=== PATIENT | male | born 1930 | race Caucasian/White ===

== ENCOUNTER 2016-05-13 11:47 | Emergency (ER) | payer OTHER ==
--- NOTE | ~2016-05-13 | CT4 ---
[facility] A Service of [facility] & [facility] RADIOLOGY TEXT RESULTS PATIENT: ROB HOYOS LOCATION: [facility] : 30 UNIT #: [id number] AGE: [address]: Darrel Buchanan MD SEX: M ORDER DR: [id number] [facility] [address] [place], [place] [address] [id number] MR#: [id number] Acc #: [id number] NAME: ROB HOYOS. : 1930 SEX: M STUDY DATE/TIME: 05/13/2016 13:23 UNIT: [facility] ROOM: STUDY DESCRIPTION: CT Abd and Pelv Wo Cont Attending Physician: Darrel Buchanan M.D. Ordering Physician: Darrel Buchanan M.D. Primary Care Physician: Ebenezer Weiss M.D. MEDICAL IMAGING REPORT This report is preliminary unless electronic signature is present EXAM CT abdomen and pelvis without contrast, 05/13/2016 13:23 hours HISTORY 85-year-old man with complaint of diarrhea for 2 weeks. History of bladder cancer, CHF and previous stroke. COMPARISON CT abdomen and pelvis, 06/19/2012 TECHNIQUE Helical noncontrasted images were obtained from the lung bases through the pubic symphysis. Sagittal and coronal reconstructions were performed. Total exam DLP 1026 mGy-cm. This CT exam was performed with one or more of the following radiation dose reduction techniques: automatic exposure control, adjustment of mA and/or kV according to patient size, and iterative reconstruction. FINDINGS Images through the lung bases demonstrate clear lungs. There are no effusions. There is a pacer device with tip in the right ventricle, new from 06/19/2012. Images through the abdomen demonstrate stable liver cysts. There is no new liver lesion. The spleen, pancreas and bile ducts are normal. The gallbladder is distended similar to prior exam with no definite stones, sludge or wall thickening. The adrenal glands are normal. The right kidney demonstrates a large cyst laterally which is stable. There is no solid mass or distension. There is no residual ureterectasis. Previous dilatation of the left renal collecting system has resolved. The bladder appears normal. No definite STS. [facility] A Service of [facility] & [facility] RADIOLOGY TEXT RESULTS PATIENT: ROB HOYOS LOCATION: [facility] : 30 UNIT #: [id number] AGE: [address]: Darrel Buchanan MD SEX: M ORDER DR: bladder wall thickening is seen where it was seen previously. Enlarged prostate measuring 5.8 x 5.5 x 5.0 cm is again noted. The stomach is contracted and unopacified but appears normal. There is no small bowel distension or small bowel wall thickening. The distal small bowel, right colon, transverse colon and descending colon are opacified with contrast. There is no bowel distension or definite wall thickening. There are multiple diverticula in the sigmoid colon without definite wall thickening seen. There is no fluid or adenopathy. Calcifications are seen in the abdominal aorta without aneurysm. IMPRESSION 1. No residual dilatation of the renal collecting systems or ureters. There is no definite bladder wall thickening where the bladder wall was thickened in 2012. Enlarged prostate again noted. 2. There are numerous colonic diverticula of the distal descending colon and sigmoid colon without definite bowel wall thickening or distension. 3. The small bowel is normal. No evidence of appendicitis or cholecystitis. Dictated by... Joseline Kat M.D. THIS IS AN ELECTRONICALLY VERIFIED REPORT Joseline Kat M.D. at 05/14/2016 9:25 AM Massimo TD: 05/13/2016 16:02 JOB #: [id number] MEDICAL IMAGING REPORT COPY
[~2016-05-13 11:47] MED LIST: ALLOPURINOL300 MG PO; ASPIRIN; ASPIRIN81 MG PO; BENAZEPRIL-HCT1 EAC1 PO; BENAZEPRIL-HCTZ1 T18 PO; BENICAR HCT 40-1 TA1; CALCITRIOL0.25 MCG PO; CARVEDILOL3.125 MG PO; CARVEDILOL6.25 MG PO; CENTRUM SILVER PO; CIPRO PO; CLOPIDOGREL75 MG PO; COUMADIN5 MG PO; FLOMAX0.4 M1 PO; FLOMAX0.4 MG; FUROSEMIDE40 MG PO; GABAPENTIN300 MG PO; IBUPROFEN; KEFLEX500 M1 PO; LISINOPRIL5 MG PO; LOPID600 MG PO; METOPROLOL SUCC25 MG PO; METOPROLOL SUCC50 MG PO; NEURONTIN100 MG PO; NITROGLYGERIN0.4 MG SL; NORCO 5/325 TAB1 TAB PO; NORCO 7.5/325 T1 TAB PO; PLAVIX PO; PLAVIX300 MG PO; PYRIDIUM PO; REQUIP1 MG PO; ROPINIROLE HCL1 MG PO; SIMVASTATIN5 MG PO; TOPROL XL PO; ZYLOPRIM PO; [UNRECOGNIZED DRUG - CODE]
[2016-05-13 11:49] LABS: BASOPHIL% 0.6 % (0-2.5); EOSINOPHIL# 0.1 X10e3 (0-0.7); EOSINOPHIL% 2.5 % (0.0-7.0); HEMATOCRIT 39.1 % (38.0-50.0); HEMOGLOBIN 12.9 gm/dL (13.0-16.0); LYMPHOCYTE# 1.1 X10e3 (1.0-3.5); LYMPHOCYTE% 19.7 % (17.0-45.0); MEAN CELL VOLUME 97.5 FL (83-96); MEAN CORPUSCULAR HEMOGLOBIN 32.1 PG (28-34); MEAN PLATELET VOLUME 8.5 FL (6.5-11.5); MONOCYTE# 0.5 X10e3 (0-1.0); MONOCYTE% 8.9 % (3.0-12.0); NEUTROPHIL# 3.8 X10e3 (1.5-7.1); NEUTROPHIL% 68.3 % (40-75); PLATELET COUNT 158 X10e3 (140-420); RED BLOOD COUNT 4.01 X10e (3.90-5.60); RED CELL DISTRIBUTION WIDTH 16.3 % (11.0-15.5); WHITE BLOOD COUNT 5.6 X10e3 (4.0-10.5)
[2016-05-13 11:54] LABS: DIFF IND NO
[2016-05-13 12:15] LABS: ALBUMIN SERUM 3.6 g/dL (3.5-5.0); BILIRUBIN, DIRECT 0.1 mg/dL (0.0-0.2); BILIRUBIN,INDIRECT 0.6 mg/dL (0.0-0.9); BILIRUBIN,TOTAL 0.7 mg/dL (0.2-2.0); BUN/CREATININE RATIO 31.17; CALCIUM SERUM 8.8 mg/dL (8.4-10.2); CREATININE SERUM 1.7 mg/dL (0.6-1.4); GLOM FILT RATE Estimated 40.9 mL/min (>60); POTASSIUM 4.4 mmol/L (3.5-5.1); PROTEIN TOTAL SERUM 6.5 g/dL (6.0-8.3)
[2016-06-19] MEDS ORDERED: REQUIP1 MG (06:16)
[2016-06-19] MEDS ORDERED: FLOMAX0.4 M1 DOB (06:16)
[2016-06-19] MEDS ORDERED: ALLOPURINOL300 MG PO (06:16)
[2016-06-19] MEDS ORDERED: LOPID600 MG (06:18)
[2016-06-19] MEDS ORDERED: COUMADIN5 MG PO (06:18)
[2016-06-19] MEDS ORDERED: NEURONTIN100 MG PO (06:18)
[2016-06-19] MEDS ORDERED: COREG6.25 MG PO (06:19)
[2016-06-19] MEDS ORDERED: LASIX PO (06:19)
[2016-06-19] MEDS ORDERED: CLOPIDOGREL75 MG PO (06:19)
[2016-06-19] MEDS ORDERED: CALCITRIOL0.25 MC1 (06:20)
[2016-06-19] MEDS ORDERED: ZESTRIL2.5 M1 PO (06:20)
[2016-06-19] MEDS ORDERED: NITROGLYGERIN0.4 MG (06:21)
[2016-06-26] MEDS ORDERED: PROTONIX PO (12:32)
[2016-06-26] MEDS ORDERED: COLESTIPOL HCL1 GM PO (12:33)
[2016-06-26] MEDS ORDERED: LOMOTIL WHITE2.5 M1 PO (12:33)
[2016-08-23] MEDS ORDERED: COLESTID (11:28)
[2016-08-23] MEDS ORDERED: COREG3.125 MG PO (11:30)
== END 2016-05-13 14:47 | disposition home or self-care (01) ==
LOC: CED 11:47
PROVIDERS: Emergency Medicine
DX: R19.7 Diarrhea, unspecified (principal); E78.5 Hyperlipidemia, unspecified; I11.0 Hypertensive heart disease with heart failure; I50.9 Heart failure, unspecified; Z88.5 Allergy status to narcotic agent
CPT/HCPCS: 36415; 74176; 80048; 80076; 82150; 83690; 85025; 87045; 87177; 87209; 87427; 87493; 87899; 96360; 99284

== ENCOUNTER → 2016-06-14 | Outpatient (CLI) | payer OTHER ==
[~2016-06-14] MED LIST changes: +ACETAMINOPHEN PO; +CALCITRIOL0.25 MC1; +CALCITRIOL0.25 MC1 PO; +CLOPIDOGREL BIS75 MG PO; +COLESTID; +COLESTIPOL HCL1 GM PO; +COREG3.125 MG PO; +COREG6.25 M1 PO; +COREG6.25 MG PO; +COUMADIN3 MG PO; +FLOMAX0.4 M1 DOB; +LASIX PO; +LASIX20 MG PO; +LOMOTIL WHITE2.5 M1 PO; +LOPID600 MG; +NITROGLYGERIN0.4 MG; +PANTOPRAZOLE SO40 MG PO; +PROTONIX PO; +REQUIP1 MG; +VICODIN 5-3001 EACH PO; +WARFARIN SODIUM3 MG PO; +WOUND CARE; +ZESTRIL2.5 M1 PO
--- NOTE | ~2016-06-14 | US135 ---
[facility] A Service of [facility] & [facility] RADIOLOGY TEXT RESULTS PATIENT: ROB HOYOS LOCATION: [facility] : 30 UNIT #: [id number] AGE: [address]: Ervin Mcmahan MD SEX: M ORDER DR: [id number] [facility] [address] [place], [place] [address] [id number] O MR#: [id number] Acc #: [id number] NAME: ROB HOYOS. : 1930 SEX: M STUDY DATE/TIME: 06/14/2016 12:35 UNIT: [facility] ROOM: STUDY DESCRIPTION: US U/L Ext Art Study Comp Michelet Attending Physician: Ervin Mcmahan M.D. Referring Physician: bEenezer Weiss M.D. Ordering Physician: Ervin Mcmahan M.D. Primary Care Physician: Ebenezer Weiss M.D. MEDICAL IMAGING REPORT This report is preliminary unless electronic signature is present EXAM ABIs with segmental pressures HISTORY Left foot ulcer since 01/2015, claudication of both calves, and numbness and tingling both feet x2 years. FINDINGS The right brachial artery pressure is 154. The right upper thigh pressure is 202, lower thigh 180, calf could not be obtained due to noncompressibility of the vessel. The right dorsalis pedis pressure is 156, with an ankle-brachial index of 1.01. The right posterior tibial pressure is 152, with an ankle-brachial index of 0.99. The right digital pressure is 73, with a toe index of 0.74. The left brachial artery pressure is 150. The left upper thigh pressure is 195, lower thigh 183, calf 232. The left dorsalis pedis pressure is 148, with an ankle-brachial index of 0.96. The left posterior tibial pressure is 142, with an ankle-brachial index of 0.92. The left digital pressure is 53, with a toe index of 0.34. Waveforms of the posterior tibial and dorsalis pedis waveforms are monophasic. Pulse volume recordings demonstrate a sharp upstroke in systolic peak of the upper thigh above knee segments. The left calf appears blunted. The right ankle and left ankle are both severely blunted, and have broadened systolic peaks. The left digital waveform is flat in comparison to the right. IMPRESSION [facility]. [facility] A Service of [facility] RADIOLOGY TEXT RESULTS PATIENT: ROB HOYOS LOCATION: [facility] : 30 UNIT #: [id number] AGE: [address]: Ervin Mcmahan MD SEX: M ORDER DR: 1. The right COLT is 1.01. This value, while normal, may be falsely elevated due to vessel calcification, as suggested by noncompressibility of some of the vessels. In addition, the waveforms are monophasic suggesting some level of peripheral vascular disease. 2. The left COLT is 0.96, which is within normal values. Again, however, this value may be falsely elevated due to vessel calcification, as pulse volume recordings and waveforms suggest some femoropopliteal disease. Dictated by... Skyler Bills M.D. THIS IS AN ELECTRONICALLY VERIFIED REPORT Skyler Bills M.D. at 06/17/2016 2:00 PM Luanne TD: 06/16/2016 12:02 JOB #: [id number] MEDICAL IMAGING REPORT Page 1 of 1 COPY
== END | disposition home or self-care (01) ==
LOC: CNIV 12:13
DX: I70.299 Other atherosclerosis of native arteries of extremities, unspecified extremity (principal); I73.9 Peripheral vascular disease, unspecified
CPT/HCPCS: 93923

== ENCOUNTER → 2016-06-19 | Day surgery (SDC) | payer OTHER ==
--- NOTE | ~2016-06-19 | OR ---
Unit #: [id number] #: [id number] Patient: ROB HOYOS [id number] [address] [id number] O MR#: [id number] NAME: ROB HOYOS ROOM: Date of Procedure: 06/19/2016 Admission Date: 06/19/2016 Surgeon: Erwin Galaviz M.D. : 1930 Attending Physician: Erwin Galaviz M.D. Primary Care Physician: Ebenezer Weiss M.D. OPERATIVE REPORT PREOPERATIVE DIAGNOSES The patient has presented with history of chronic watery nonbloody diarrhea along with significant weight loss. He also has nocturnal symptoms. PROCEDURES PERFORMED Upper gastrointestinal endoscopy and biopsy as well as colonoscopy with biopsy and colonoscopy with polypectomy. POSTOPERATIVE DIAGNOSES For upper endoscopy: 1. 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 Appropriate biopsies obtained. In addition, there was mild focal patchy erosive duodenitis in the duodenal bulb. 2. Rest of the examination up to third part of duodenum was normal. Biopsies obtained from the deep descending duodenal folds to look for any evidence of partial villous atrophy or celiac disease. For colonoscopy: 1. The patient had large pedunculated polyp in the proximal sigmoid colon. This was about 3.5 cm in size. It was removed using snare cautery polypectomy. 2. Severe localized sigmoid and descending colon diverticulosis. 3. Rest of the examination up to cecum and terminal ileum was normal. The quality of the prep was excellent. Multiple random colonic biopsies obtained from throughout the colon to rule out microscopic or collagenous colitis. SEDATION USED MAC. RECOMMENDATIONS 1. The patient is advised to use daily pantoprazole 40 mg p.o. daily. In addition, he will use Colestid 1 g p.o. t.i.d. as well as p.r.n. Lomotil. 2. He will follow up in the office along with results of biopsies and polyp histology. The purpose of the biopsies to look for any evidence of microscopic or collagenous colitis. 3. The patient needs a repeat colonoscopy in 5 years. SEDATION USED MAC. Unit #: [id number] #: [id number] Patient: ROB HOYOS DESCRIPTION OF PROCEDURE Following detailed explanation of potential risks and complications of a colonoscopy, and an upper endoscopy, namely perforation, bleeding, and complications related to sedation, the patient was brought to GI lab and laid in the left lateral decubitus position. Lubricated tip of the Olympus video upper endoscope was passed through the bite block into the proximal esophagus under direct vision. The entire esophageal mucosa was examined. The patient was noted to have severe confluent distal ulcerative esophagitis along with evidence of Weaver esophagus. The scope was then advanced into the gastric cavity and the latter was insufflated. Mucosa of the fundus, body, and antrum examined and appeared unremarkable. Pylorus was intubated with visualization of the duodenal bulb. This showed evidence of mild focal patchy erosive duodenitis. Second and third part of the duodenum were normal. Upon withdrawal and retroflexion, second and third part of the duodenum were normal. Biopsies obtained from the deep descending duodenal folds to look for any evidence of partial villous atrophy or celiac disease. Upon withdrawal and retroflexion, incisura, cardia, and greater curve examined and biopsy obtained from the antrum for CLOtest. The scope was then withdrawn in the distal esophagus. The entire esophageal mucosa was examined all the way up to pharynx. No additional findings noted. The examination table was then turned by 180 degrees and the patient positioned for a colonoscopy. A digital rectal examination was performed, which was normal. Lubricated tip of the Olympus video colonoscope was inserted through the anus and advanced under direct vision. The scope was advanced and passed up to sigmoid into descending colon. The patient was noted to have severe localized sigmoid and descending colon diverticulosis. In addition, a large pedunculated polyp was also seen in the proximal sigmoid colon. This was about 3.5 to 4 cm in size. The scope tip was then navigated all the way up to cecum with visualization of the ileocecal valve and the appendiceal orifice. Preparation was excellent with good visualization and photodocumentation was obtained. Last several inches of the terminal ileum also visualized after intubation of the ileocecal valve and appeared normal. Successive segments of the colonic mucosa were examined upon withdrawal and appeared unremarkable except for presence of a large pedunculated polyp seen earlier and localized severe sigmoid diverticulosis. No evidence of colitis was seen. Attention was focused on the large polyp. It was removed in toto using snare cautery polypectomy. In addition, multiple random colonic biopsies also obtained from throughout the colon to rule out microscopic or collagenous colitis. The patient also had a small hemorrhoids at anal verge. The scope was then withdrawn. The patient returned to the recovery area. He tolerated the procedure without any postprocedure complications. Dictated byMagi Goldman/samir TD: 06/19/2016 08:42 JOB #: [id number] Unit #: [id number] #: [id number] Patient: ROB HOYOS OPERATIVE REPORT Page 1 of 1 X Erwin Galaviz MD X PROCEDURE OPERATIVE NOTE
== END | disposition home or self-care (01) ==
LOC: COPS 05:57
DX: D12.5 Benign neoplasm of sigmoid colon (principal); K21.0 Gastro-esophageal reflux disease with esophagitis; K29.80 Duodenitis without bleeding; K57.30 Diverticulosis of large intestine without perforation or abscess without bleeding; K64.9 Unspecified hemorrhoids; I25.2 Old myocardial infarction; E78.5 Hyperlipidemia, unspecified; I11.0 Hypertensive heart disease with heart failure; I50.9 Heart failure, unspecified; I48.91 Unspecified atrial fibrillation; Z86.73 Personal history of transient ischemic attack (TIA), and cerebral infarction without residual deficits; Z88.5 Allergy status to narcotic agent; Z79.01 Long term (current) use of anticoagulants; Z79.899 Other long term (current) drug therapy; Z95.5 Presence of coronary angioplasty implant and graft; Z98.1 Arthrodesis status; Z98.890 Other specified postprocedural states
CPT/HCPCS: 88305

== ENCOUNTER → 2016-06-21 | Outpatient (CLI) | payer OTHER ==
[2016-06-21 13:07] LABS: BASOPHIL% 0.8 % (0-2.5); EOSINOPHIL# 0.2 X10e3 (0-0.7); EOSINOPHIL% 4.1 % (0.0-7.0); HEMATOCRIT 38.7 % (38.0-50.0); HEMOGLOBIN 12.5 gm/dL (13.0-16.0); LYMPHOCYTE# 1.2 X10e3 (1.0-3.5); LYMPHOCYTE% 25.8 % (17.0-45.0); MEAN CELL VOLUME 100.7 FL (83-96); MEAN CORPUSCULAR HEMOGLOBIN 32.6 PG (28-34); MEAN CORPUSCULAR HGB CONC 32.4 g/dL (30-36); MEAN PLATELET VOLUME 7.9 FL (6.5-11.5); MONOCYTE# 0.5 X10e3 (0-1.0); NEUTROPHIL# 2.8 X10e3 (1.5-7.1); NEUTROPHIL% 59.3 % (40-75); PLATELET COUNT 138 X10e3 (140-420); RED BLOOD COUNT 3.84 X10e (3.90-5.60); RED CELL DISTRIBUTION WIDTH 16.1 % (11.0-15.5); WHITE BLOOD COUNT 4.7 X10e3 (4.0-10.5)
[2016-06-21 13:12] LABS: DIFF IND NO
[2016-06-21 13:33] LABS: ALBUMIN SERUM 3.4 g/dL (3.5-5.0); BILIRUBIN,TOTAL 0.6 mg/dL (0.2-2.0); BUN/CREATININE RATIO 26.81; CALCIUM SERUM 8.7 mg/dL (8.4-10.2); CREATININE SERUM 2.2 mg/dL (0.6-1.4); GLOM FILT RATE Estimated 26.3 mL/min (>60); POTASSIUM 3.9 mmol/L (3.5-5.1); PROTEIN TOTAL SERUM 6.6 g/dL (6.0-8.3)
[2016-06-25 22:20] LABS: GLIADIN IGA AB 6 Units (<20); GLIADIN IGG AB 4 Units (<20); RETICULIN IGA SCREEN W/REFLEX Negative (Negative); TISSUE TRANSGLUTAMINASE IGA AB 1 U/mL (<4)
== END | disposition home or self-care (01) ==
LOC: CLAB 12:23
PROVIDERS: Internal Medicine Gastroenterology
DX: K52.9 Noninfective gastroenteritis and colitis, unspecified (principal); E86.0 Dehydration; R63.4 Abnormal weight loss
CPT/HCPCS: 36415; 80053; 83516; 85025; 86255

== ENCOUNTER → 2016-06-26 | Outpatient (CLI) | payer OTHER ==
--- NOTE | ~2016-06-26 | OR ---
Unit #: [id number] #: [id number] Patient: ROB HOYOS [id number] [address] [place], [place] [address] [id number] O MR#: [id number] NAME: ROB HOYOS ROOM: Date of Procedure: 06/26/2016 Admission Date: 06/26/2016 Surgeon: Yovana Broderick M.D. : 1930 Attending Physician: Yovana Broderick M.D. Referring Physician: Yovana Broderick M.D. Primary Care Physician: Ebenezer Weiss M.D. OPERATIVE REPORT PREOPERATIVE DIAGNOSIS Peripheral arterial disease, nonhealing wound, left foot. POSTOPERATIVE DIAGNOSIS Peripheral arterial disease, nonhealing wound, left foot. PROCEDURES PERFORMED 1. Ultrasound-guided cannulation, right common femoral artery. 2. CO2 arteriogram, abdominal aorta. 3. Selective CO2 arteriogram, pelvis. 4. Selective left lower extremity arteriogram with CO2 as well as contrast. 5. Selective CO2 arteriogram, right lower extremity. 6. Placement of right common femoral artery Mynx percutaneous closure device. ANESTHESIA Local with sedation. Total time 55 minutes. COMPLICATIONS None. ESTIMATED BLOOD LOSS 10 mL. CONTRAST USED Isovue-27 mL. INDICATIONS FOR PROCEDURE The patient is an 85-year-old gentleman with a history of a nonhealing wound for 7 months in the bottom of his left foot. He was recommended an arteriogram after noninvasive arterial studies suggested significant arterial disease with calcified vessels causing falsely elevated COLT. In the office, he was identified to not have palpable pedal pulses in either foot. Once described the planned procedure of arteriogram including the risks, benefits, complications, and alternatives, he did wish to proceed. DESCRIPTION OF PROCEDURE The patient was taken to the operating room and placed on the operating room table in supine position. Following initiation of continuous pulse, pulse oximetry, and blood pressure monitoring by nursing staff, the patient was given Versed and fentanyl for sedation for a total time of 55 Unit #: [id number] #: [id number] Patient: ROB HOYOS minutes. The right and left groin were then prepped and draped in the normal standard manner. Using fluoroscopy, the femoral heads were identified and marked on the skin with a marker. Using ultrasound, the right common femoral artery was identified and under ultrasound guidance, the artery was anesthetized as well as subcutaneous tissues and then under ultrasound guidance, the artery was cannulated and a starter wire was then passed into the infrarenal aorta confirmed on fluoroscopy. A 4-Luxembourger sheath was advanced over the wire and a sheath arteriogram was performed with 2 mL of half-strength contrast confirming common femoral artery placement. An Omni Flush catheter was then advanced to the L1 vertebral body. The CO2 hand injection system was then prepared and connected to the Omni Flush catheter, and using 30 mL syringes for hand injection of CO2, an abdominal arteriogram was performed. The catheter was withdrawn to the aortic bifurcation and a selective pelvic arteriogram was performed in FAITH and COX 30-degree projection each with hand injection of 30 mL of CO2. Via the Omni Flush catheter, a Glidewire was selectively placed into the distal left external iliac artery and the catheter was then extended at that point. Using CO2 and hand injection of 30 mL aliquots spot, arteriograms were performed of the left lower extremity from the femoral head to the mid calf. There was opacification of the arterial system from the mid calf to the foot with CO2 and so using half strength contrast via the power injector. A bolus lena technique arteriogram was performed from the knee to the foot with 30 mL contrast at 5 mL/second with again half strength contrast. A second spot injection with contrast was performed of just the foot with 20 mL volume at 4 mL/second. The catheter was then withdrawn to the right external iliac artery and in spot fashion, right lower extremity arteriogram was performed from the femoral head to the toes with hand injection of 30 mL CO2 aliquots. Upon completion, the Omni Flush catheter was removed over a wire and the 4-Luxembourger sheath was exchanged for a 5-Luxembourger sheath. A 5-Luxembourger Mynx closure device was then advanced via the sheath and deployed without incident with hemostasis being excellent. Pressure was held on the site for 5 minutes with no bleeding noted and dressing was then applied. The procedure was then terminated. The patient tolerated the procedure well and was taken to the recovery room in stable condition. All needle, sponge, and instrument counts were correct at the end of the case. FINDINGS The abdominal aorta is widely patent without atherosclerosis or stenosis. There were single renal vessels bilaterally. The right and left common iliac artery, internal iliac artery, and external iliac arteries were widely patent without disease. The left common femoral artery, profunda femoral artery, and superficial femoral arteries were widely patent without disease. The popliteal artery from both above and below the knee was widely patent. The anterior tibial artery and posterior tibial arteries were occluded in the left lower extremity. The peroneal artery was patent, but then became occluded and did not reconstitute from the mid calf to the foot. There was faint reconstitution of a small and very diseased anterior tibial artery at the dorsum of the foot. There was minimal small vessel flow into the foot. The left common femoral artery, profunda femoral artery, superficial femoral artery, and popliteal arteries were widely patent without significant disease. The anterior tibial artery and posterior tibial arteries were occluded and did not reconstitute. There was a patent peroneal artery to the ankle, which provided a small amount of flow to the posterior tibial artery and anterior tibial artery and dorsalis pedis Unit #: [id number] #: [id number] Patient: ROB HOYOS artery into the foot. Dictated by... Magi Washburn/samir TD: 06/26/2016 22:51 JOB #: [id number] OPERATIVE REPORT Page 1 of 1 X Yovana Broderick MD X PROCEDURE OPERATIVE NOTE
[2016-06-26 12:42] LABS: PROTHROMBIN TIME (PATIENT) 21.2 SECONDS (9.6-11.5)
[2016-06-26 12:47] LABS: BUN/CREATININE RATIO 25.55; CREATININE SERUM 1.8 mg/dL (0.6-1.4); GLOM FILT RATE Estimated 33.6 mL/min (>60); POTASSIUM 4.7 mmol/L (3.5-5.1)
== END | disposition home or self-care (01) ==
LOC: CIVR 11:31
PROVIDERS: Surgery Vascular Surgery
DX: I70.244 Atherosclerosis of native arteries of left leg with ulceration of heel and midfoot (principal); E78.5 Hyperlipidemia, unspecified; I48.91 Unspecified atrial fibrillation; Z79.01 Long term (current) use of anticoagulants; I87.393 Chronic venous hypertension (idiopathic) with other complications of bilateral lower extremity; I12.9 Hypertensive chronic kidney disease with stage 1 through stage 4 chronic kidney disease, or unspecified chronic kidney disease; N18.3 Chronic kidney disease, stage 3 (moderate); E11.9 Type 2 diabetes mellitus without complications; Z88.5 Allergy status to narcotic agent
CPT/HCPCS: 36415; 75625; 75716; 80048; 85610; 85730; C1725; J1644; J2250; J3010; Q9967

== ENCOUNTER 2016-07-17 20:48 | Observation (INO) | payer OTHER ==
--- NOTE | ~2016-07-17 | DS ---
Unit #: [id number] #: [id number] Patient: ROB HOYOS [id number] [address] [address] [id number] MR#: [id number] NAME: ROB HOYOS. ROOM: 565 Age: 85 Sex: M Admission Date: 07/17/2016 : 1930 Discharge Date: 07/19/2016 Attending Physician: Ahmet Zheng M.D. Primary Care Physician: Ebenezer Weiss M.D. DISCHARGE SUMMARY REASON FOR ADMISSION Coumadin toxicity, spontaneous bleeding, left arm. HISTORY OF PRESENT ILLNESS/HOSPITAL COURSE Patient is a very pleasant 85-year-old male with a prior history of coronary artery disease, atrial fibrillation, peripheral vascular disease was admitted secondary to Coumadin toxicity. He was noted to have an INR of 11. On day of admission, he was given 5 mg of vitamin K p.o. x1. He was also given 1 unit FFP. Through hospital course, his INR gradually drifted down to 3.5 and subsequently this morning, and is currently standing at 1.8. The remainder of his medical conditions remain stable. We consulted Wound Care, as he is being followed as an outpatient by [facility]. Appropriate wound culture of the left foot was taken. The patient will be followed as an outpatient by both [facility] as well as Wound Care. Dr. Brar was notified of the patient's admission, not formally consulted. No changes were done in his overall regimen. At the time of discharge, his Coumadin will be resumed but at a lower dosage. Please see below for details. He was instructed to follow-up on Friday for a repeat PT/INR at his primary care physician's office. FINAL DISCHARGE DIAGNOSES 1. Coumadin toxicity/supratherapeutic INR. 2. Spontaneous bleeding left arm, now resolved. 3. BPH. 4. Hyperlipidemia. 5. Gout. 6. Chronic kidney disease. 7. Atrial fibrillation. 8. Coronary artery disease. 9. Peripheral vascular disease. 10. Chronic wound left foot. 11. Esophagitis. 12. Polypectomy history with recent colonoscopy June 2016. 13. Prior history of bladder cancer, status post cystoscopy. 14. Moderate aortic stenosis. 15. Hypertension. 16. Permanent pacemaker placement. FINAL DISCHARGE MEDICATIONS Unit #: [id number] #: [id number] Patient: ROB HOYOS 1. Coreg 6.25 mg p.o. b.i.d. 2. Lasix 40 mg p.o. q.day. 3. Lisinopril 2.5 mg p.o. q.day. 4. Allopurinol 300 mg p.o. q.day. 5. Plavix 75 mg p.o. q.day. 6. Protonix 40 mg p.o. q.day. 7. Sublingual nitro as directed. 8. Calcitriol 0.25 mcg p.o. q.day. 9. Requip 1 mg p.o. q.day. 10. Lopid 600 mg p.o. b.i.d. 11. Colestid 1 g p.o. t.i.d. 12. Lomotil 1 tablet p.o. q.8 p.r.n. 13. Neurontin 100 mg p.o. b.i.d. 14. Coumadin 3 mg p.o. q.day. 15. Tylenol 650 mg p.o. q.6 p.r.n. 16. Flomax 0.4 mg p.o. q.day. DISCHARGE CONDITION Stable. DISCHARGE DISPOSITION Home. Patient instructed to have a repeat PT/INR on Friday with results and/or management, to be managed by primary care physician. Dictated by... Magi Triplett/chayo TD: 07/20/2016 15:51 JOB #: [id number] DISCHARGE SUMMARY Page 1 of 1 X Ahmet Zheng MD X DISCHARGE SUMMARY
--- NOTE | ~2016-07-17 | CO ---
Unit #: [id number] #: [id number] Patient: ROB HOYOS [id number] [facility]. [address] [place], [place] [address] [id number] MR#: [id number] NAME: ROB HOYOS. ROOM: 565 Age: 85 Sex: M Admission Date: 07/18/2016 : 1930 Attending Physician: Ahmet Zheng M.D. Primary Care Physician: Ebenezer Weiss M.D. Consultation Date: 07/18/2016 CONSULTATION REPORT REASON FOR CONSULTATION Coumadin toxicity. HISTORY OF PRESENT ILLNESS This is an 85-year-old, male well known to Dr. Brar with a prior cardiac history of chronic systolic and diastolic heart failure, permanent AFib on Coumadin, moderate aortic stenosis, hypertension, hyperlipidemia, and tachybradycardia syndrome status post permanent pacemaker in February 2016. He also has a history of coronary artery disease. His last cardiac cath was in 2014. It showed a mid LAD 95% to 99%, first diagonal was 99%, and left circumflex 100% at the first OM. He had a drug-eluting stent placed to the first diagonal and the mid LAD, but there was unsuccessful angioplasty of the first OM lesion. He also has a history of peripheral artery disease with right foot nonhealing wound. He was working outside in his yard when he injured his left arm. His left arm laceration continued to bleed so he presented to the ER. In the ER, his INR was 11 and his PT was 125. He was due to have his PT and INR rechecked tomorrow. Reports that at his last INR check a month ago, his INR was therapeutic in the 2.5 ranch and no changes were made to his Coumadin dosing. He denies recent antibiotic use. Reports ongoing diarrhea over the last one or two months resulting in a GI workup last month. PAST MEDICAL HISTORY 1. Chronic systolic and diastolic congestive heart failure. 2. Permanent AFib on chronic Coumadin. 3. Moderate aortic stenosis. 4. Tachycardia-bradycardia syndrome, status post permanent pacemaker implantation in February 2016. 5. Hypertension. 6. Diabetes mellitus. 7. Hyperlipidemia. 8. Chronic kidney disease. 9. CVA/TIA. 10. Bladder cancer. 11. Peripheral arterial disease with nonhealing foot wounds. 12. Coronary artery disease, status post drug-eluting stent x2 to LAD in 2014. 13. Lifetime nonsmoker. 14. BPH. 15. Gout. SURGICAL HISTORY Unit #: [id number] #: [id number] Patient: ROB HOYOS A Cardiac cath, April 2014; permanent pacemaker, February 2016; EGD, June 2016; polypectomy and colonoscopy, June 2016; and cystoscopy and fulguration of the bladder. SOCIAL HISTORY Lifetime nonsmoker. Rarely drinks alcohol. FAMILY HISTORY His mother and father both had coronary artery disease and in their 80s. ALLERGIES Morphine. HOME MEDICATIONS 1. Calcitriol 0.25 mg p.o. daily. 2. Nitroglycerin 0.4 mg sublingual as needed for chest pain. 3. Protonix 40 mg p.o. daily. 4. Colestipol 1 mg 3 times a day. 5. Lopid 600 mg p.o. twice a day. 6. Coreg 6.25 mg twice a day. 7. Plavix 75 mg daily. 8. Lasix 40 mg daily. 9. Lisinopril 2.5 mg daily. 10. Flomax 0.4 mg p.o. daily. 11. Requip 1 mg p.o. daily. 12. Allopurinol 300 mg p.o. daily. 13. Coumadin 5 mg with alternating days, every other day of 2.5 mg p.o. 14. Neurontin 100 mg twice a day. REVIEW OF SYSTEMS Positive for bleeding, right foot wound, and lower extremity swelling. Otherwise negative, except for what was stated in the HPI. Denies chest pain, pressure, or tightness. Denies dyspnea on exertion, PND, or orthopnea. PHYSICAL EXAMINATION VITAL SIGNS: Temperature 97.9, heart rate 70, respiratory rate 16, blood pressure 130/67 to 143/113, height 68 inches, and weight 88.4 kg. GENERAL: Alert and oriented, 85-year-old, male. Sitting up on the side of the bed in no acute distress. HEENT: Head is atraumatic and normocephalic. Pupils are equal and round. Mucous membranes are moist. NECK: Supple. Trachea is midline. Negative for JVD. LUNGS: Clear and diminished in bases. Nonlabored respirations. HEART: S1 and S2. Regular rate and rhythm. No murmurs, rubs, or gallops auscultated. ABDOMEN: Soft, nontender, and nondistended. EXTREMITIES: Pulses are palpable. Trace of pedal edema. Left forearm with pressure dressing clean, dry, and intact. No cyanosis. NEUROLOGIC: Alert and oriented x3. Answers all questions appropriately and moves extremities equally. DIAGNOSTIC STUDIES LABORATORY: PT 125, INR 11, and PTT 77.4. Sodium 137, potassium 4, chloride 104, BUN 51, creatinine 2.1, and glucose 136. Hemoglobin 11.6, hematocrit 35.2, white blood cell count 5.6, and platelets 155. Unit #: [id number] #: [id number] Patient: ROB HOYOS CARDIOVASCULAR: Telemetry reveals ventricular paced with a rate of 70. EKG is pending. Echocardiogram done October 10, 2015, showed LV EF 65%, moderate aortic stenosis with AV area of 1.22 cm2 with max gradient of 24 mmHg and mean gradient of 11 mmHg, [id number] mitral regurgitation, mild tricuspid regurgitation, and trace pulmonic regurgitation. ASSESSMENT 1. Left arm laceration with bleeding. 2. Supratherapeutic INR. 3. Status post permanent pacemaker. 4. Permanent AFib. 5. Coronary artery disease, status post drug-eluting stent x2 to LAD in 2014. 6. Valvular heart disease with moderate aortic stenosis. 7. Hypertension/DM/hyperlipidemia. 8. PAD with nonhealing right foot wound. 9. Chronic kidney disease. PLAN 1. Reverse anticoagulation. He is currently receiving FFP. 2. We will recheck his PT and INR after infusion. 3. Follow hemoglobin and hematocrit. 4. Restart Coumadin at a lower dose once INR decreased. 5. Continue Plavix with no aspirin. 6. We will obtain an EKG. 7. Continue beta-william. We will add parameters to hold for systolic blood pressure less than 100. 8. Will continue Lasix and JESSICA inhibitor. Thank you for asking us to see this patient. We appreciate the consult. Dictated by... VERNA Gutierrez M.D. RB/mari TD: 07/19/2016 05:48 JOB #: [id number] CONSULTATION REPORT Page 1 of 1 X X CONSULTATION REPORT
--- NOTE | ~2016-07-17 | EKG ---
PATIENT: ROB HOYOS UNIT #: [id number] Ventricular Rate: 70 BPM Atrial Rate: 56 BPM QRS Duration: 196 ms Q-T Interval: 474 ms QTC Calculation(Bezet): 511 ms Calculated R Ledbetter: -60 degrees Calculated T Ledbetter: 108 degrees Diagnosis Line: Electronic ventricular pacemaker Diagnosis Line: When compared with ECG of 19-MAR-2016 05:10, Diagnosis Line: No significant change was found Diagnosis Line: Confirmed by CLIFTON RIVAS MD ([id number]) on Diagnosis Line: 07/19/2016 7:38:54 AM INTERPRETING MD: SUMAYA
--- NOTE | ~2016-07-17 | HP ---
Unit #: [id number] #: [id number] Patient: ROB HOYOS [id number] [address] [place], [place] [address] [id number] MR#: [id number] NAME: ORB HOYOS. ROOM: Age: 85 Sex: M Admission Date: 07/17/2016 : 1930 Attending Physician: Ignacio Alvarez D.O. Primary Care Physician: Ebenezer Weiss M.D. HISTORY AND PHYSICAL CHIEF COMPLAINT Coumadin toxicity, spontaneous bleeding left arm. HISTORY OF PRESENT ILLNESS This pleasant 85-year-old male with CAD, atrial fibrillation, peripheral vascular disease, is admitted for Coumadin toxicity. Two days ago while working in the yard, the patient bumped his left arm. It began to bleed despite applying pressure. The bleeding slowed down but then restarted yesterday and the patient presented to this emergency department late last evening. He required Surgicel to stop the bleeding and compression wraps. In the ER, labs are notable for INR of 11, PTT of 77.4. The patient was given 5 mg p.o. of vitamin K. The patient denies melena or hematochezia. PAST MEDICAL HISTORY 1. BPH. 2. Hyperlipidemia. 3. Gout. 4. Chronic kidney disease. 5. Peripheral vascular disease with a chronic wound left foot. 6. 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 7. Polypectomy and colonoscopy 06/2016. 8. Bladder cancer status post cystoscopy and fulguration. 9. CAD status post PCI and stent with normal LF function and moderate aortic stenosis. 10. Permanent atrial fibrillation on Coumadin. 11. Hypertension. 12. Possible TIA per old records. 13. Permanent pacemaker. SOCIAL HISTORY The patient lives alone. He stopped smoking 58 years ago. He drinks occasional alcohol. FAMILY HISTORY Coronary artery disease. ALLERGIES Morphine. HOME MEDICATIONS 1. Flomax 0.4 mg daily. 2. Requip 1 mg daily. 3. Allopurinol 300 mg daily. Unit #: [id number] #: [id number] Patient: ROB HOYOS 4. Coumadin 2.5 alternating with 5 mg every other day. 5. Neurontin 100 mg b.i.d. 6. Lopid 600 mg b.i.d. 7. Coreg 6.25 mg b.i.d. 8. Plavix 75 mg daily. 9. Lasix 40 mg daily. 10. Lisinopril 2.5 mg daily. 11. Calcitriol 0.25 mg daily. 12. Nitroglycerin p.r.n. chest pain. 13. Protonix 40 mg daily. 14. Colestid one gram t.i.d. 15. Lomotil. REVIEW OF SYSTEMS Bleeding left forearm, CAD, valvular heart disease, atrial fibrillation, TIA, hypertension, hyperlipidemia, BPH, gout, chronic kidney disease, peripheral vascular disease, esophagitis, bladder cancer, above-mentioned surgeries. All other systems were reviewed and otherwise negative. PHYSICAL EXAMINATION GENERAL APPEARANCE: A pleasant, 85-year-old male who currently is in no acute distress. VITAL SIGNS: Temperature 97.9. Pulse 70. Respirations 18. Blood pressure 131/62. O2 saturation 100% on room air. HEENT: Eyes: PERRLA. Extraoculars are intact. Pharynx is benign. NECK: Supple without adenopathy or thyromegaly. CHEST: Clear. CARDIAC: Normal S1, S2 with a 3/6 systolic murmur heard throughout the precordium but loudest at the retrosternal border. ABDOMEN: Bowel sounds are present. No hepatosplenomegaly, tenderness or masses. EXTREMITIES: A bandage over the left forefoot with a small amount of bleeding. There is a compression bandage over the left forearm, which I did not remove. NEUROLOGIC: The patient is awake, alert, oriented. Cranial nerves are intact except that he is hard of hearing. He has equal strength throughout. DIAGNOSTIC STUDIES LABORATORY: Hematocrit 35.2 down from 38.7, MCV 100.4, normal white count and platelet count. INR 11, PTT 77.4. SMA-7: Glucose 136, BUN 51, creatinine 2.1 up from a BUN of 46, creatinine 1.8 in June. ASSESSMENT 1. Coumadin toxicity. 2. Spontaneous bleeding left forearm better after Surgicel applied. 3. CAD status post PCI and stent. Ejection fraction 55% 05/2013. The patient has a history of atrial fibrillation, permanent pacemaker and moderate aortic stenosis. 4. BPH. 5. Gout. 6. Chronic kidney disease. 7. Peripheral vascular disease with chronic wound left foot. 8. History of bladder cancer. 9. Hypertension. 10. Esophagitis. Unit #: [id number] #: [id number] Patient: ROB HOYOS PLAN 1. Vitamin K was given in the ER. This was 5 mg p.o. times one. 2. Given the patient is high risk for further spontaneous bleeding, we will give one unit of FFP and recheck labs in a few hours. 3. Notify the patient's customer service representative teacher of admission. Dictated by Frances Lockwood M.D. AML/bd TD: 07/18/2016 06:02 JOB #: [id number] HISTORY AND PHYSICAL Page 1 of 1 X Frances Lockwood MD X HISTORY AND PHYSICAL
[~2016-07-17 20:48] MED LIST changes: -ACETAMINOPHEN PO; -CALCITRIOL0.25 MC1 PO; -CLOPIDOGREL BIS75 MG PO; -COLESTID; -COREG3.125 MG PO; -COREG6.25 M1 PO; -COUMADIN3 MG PO; -LASIX20 MG PO; -PANTOPRAZOLE SO40 MG PO; -VICODIN 5-3001 EACH PO; -WARFARIN SODIUM3 MG PO; -WOUND CARE
[2016-07-17 22:31] LABS: BASOPHIL% 0.6 % (0-2.5); EOSINOPHIL# 0.3 X10e3 (0-0.7); EOSINOPHIL% 4.6 % (0.0-7.0); HEMATOCRIT 35.2 % (38.0-50.0); HEMOGLOBIN 11.6 gm/dL (13.0-16.0); LYMPHOCYTE# 1.2 X10e3 (1.0-3.5); LYMPHOCYTE% 21.2 % (17.0-45.0); MEAN CELL VOLUME 100.4 FL (83-96); MEAN CORPUSCULAR HEMOGLOBIN 33.2 PG (28-34); MEAN CORPUSCULAR HGB CONC 33.1 g/dL (30-36); MONOCYTE# 0.6 X10e3 (0-1.0); MONOCYTE% 11.1 % (3.0-12.0); NEUTROPHIL# 3.5 X10e3 (1.5-7.1); NEUTROPHIL% 62.5 % (40-75); PLATELET COUNT 155 X10e3 (140-420); RED CELL DISTRIBUTION WIDTH 15.7 % (11.0-15.5); WHITE BLOOD COUNT 5.6 X10e3 (4.0-10.5)
[2016-07-17 22:33] LABS: DIFF IND NO
[2016-07-17 23:08] LABS: PROTHROMBIN TIME (PATIENT) 125.5 SECONDS (9.6-11.5)
[2016-07-17 23:09] LABS: PARTIAL THROMBOPLASTIN TIME 77.4 SECONDS (23.5-31.3)
[2016-07-18 00:38] LABS: BUN/CREATININE RATIO 24.28; CALCIUM SERUM 8.6 mg/dL (8.4-10.2); CREATININE SERUM 2.1 mg/dL (0.6-1.4); GLOM FILT RATE Estimated 27.9 mL/min (>60)
[2016-07-18 14:21] LABS: HEMATOCRIT 35.8 % (38.0-50.0); HEMOGLOBIN 11.8 gm/dL (13.0-16.0); MEAN CELL VOLUME 99.6 FL (83-96); MEAN CORPUSCULAR HEMOGLOBIN 32.7 PG (28-34); MEAN CORPUSCULAR HGB CONC 32.8 g/dL (30-36); MEAN PLATELET VOLUME 8.3 FL (6.5-11.5); RED BLOOD COUNT 3.6 X10e (3.90-5.60); RED CELL DISTRIBUTION WIDTH 15.9 % (11.0-15.5); WHITE BLOOD COUNT 4.4 X10e3 (4.0-10.5)
[2016-07-18 14:57] LABS: INR 3.5
[2016-07-18 15:04] LABS: PROTHROMBIN TIME (PATIENT) 38.2 SECONDS (9.6-11.5)
[2016-07-18 15:18] LABS: BUN/CREATININE RATIO 26.47; CALCIUM SERUM 8.7 mg/dL (8.4-10.2); CREATININE SERUM 1.7 mg/dL (0.6-1.4); POTASSIUM 3.8 mmol/L (3.5-5.1)
[2016-07-19 06:02] LABS: HEMATOCRIT 35.7 % (38.0-50.0); HEMOGLOBIN 11.8 gm/dL (13.0-16.0); MEAN CELL VOLUME 98.9 FL (83-96); MEAN CORPUSCULAR HEMOGLOBIN 32.7 PG (28-34); MEAN PLATELET VOLUME 8.8 FL (6.5-11.5); RED BLOOD COUNT 3.61 X10e (3.90-5.60); RED CELL DISTRIBUTION WIDTH 15.5 % (11.0-15.5); WHITE BLOOD COUNT 4.5 X10e3 (4.0-10.5)
[2016-07-19 06:18] LABS: INR 1.8; PROTHROMBIN TIME (PATIENT) 19.6 SECONDS (9.6-11.5)
[2016-07-19 07:25] LABS: BUN/CREATININE RATIO 26.25; CALCIUM SERUM 8.9 mg/dL (8.4-10.2); CREATININE SERUM 1.6 mg/dL (0.6-1.4); GLOM FILT RATE Estimated 38.7 mL/min (>60); POTASSIUM 3.7 mmol/L (3.5-5.1)
[2016-07-19] MEDS ORDERED: ACETAMINOPHEN PO (08:45)
[2016-07-19] MEDS ORDERED: COUMADIN3 MG PO (08:46)
[2016-08-23] MEDS ORDERED: COLESTID (11:28)
[2016-08-23] MEDS ORDERED: COREG3.125 MG PO (11:30)
== END 2016-07-19 13:24 | disposition home or self-care (01) ==
LOC: CED 20:48 → CEDOF 07-18 06:00 → C5C 07-18 06:00 → CED 07-18 06:07 → CEDOF 07-18 06:07 → C5C 07-18 08:37 → CEDOF 07-18 08:37 → C5C 07-18 08:37
PROVIDERS: Emergency Medicine; Family Medicine
DX: D68.32 Hemorrhagic disorder due to extrinsic circulating anticoagulants (principal); T45.515A Adverse effect of anticoagulants, initial encounter; S41.112A Laceration without foreign body of left upper arm, initial encounter; W22.8XXA Striking against or struck by other objects, initial encounter; Y92.096 Garden or yard of other non-institutional residence as the place of occurrence of the external cause; I25.10 Atherosclerotic heart disease of native coronary artery without angina pectoris; Z95.5 Presence of coronary angioplasty implant and graft; I48.2 Chronic atrial fibrillation; Z95.0 Presence of cardiac pacemaker; I35.0 Nonrheumatic aortic (valve) stenosis; I10 Essential (primary) hypertension; E11.9 Type 2 diabetes mellitus without complications; E78.5 Hyperlipidemia, unspecified; N40.0 Benign prostatic hyperplasia without lower urinary tract symptoms; I12.9 Hypertensive chronic kidney disease with stage 1 through stage 4 chronic kidney disease, or unspecified chronic kidney disease; N18.9 Chronic kidney disease, unspecified; Z85.51 Personal history of malignant neoplasm of bladder; I73.9 Peripheral vascular disease, unspecified; Z79.02 Long term (current) use of antithrombotics/antiplatelets; K20.9 Esophagitis, unspecified; Z86.010 Personal history of colon polyps; Z88.5 Allergy status to narcotic agent
CPT/HCPCS: 36415; 36430; 80048; 85025; 85027; 85610; 85730; 86850; 86900; 86901; 87070; 87077; 87186; 87205; 93005; 99285; G0378; J3430; P9059

== ENCOUNTER 2016-08-08 18:49 | Inpatient (IN) | payer OTHER ==
--- NOTE | ~2016-08-08 | CO ---
Unit #: [id number] #: [id number] Patient: ROB HOYOS [id number] [address] [place], [place] [address] [id number] I MR#: [id number] NAME: ROB HOYOS. ROOM: 547 Age: 85 Sex: M Admission Date: 08/08/2016 : 1930 Attending Physician: Ahmet Zheng M.D. Primary Care Physician: Ebenezer Weiss M.D. Consultation Date: 08/11/2016 CONSULTATION REPORT HISTORY AND EXAM Mr. Hoyos is an 85 -year-old gentleman who presented through the emergency room with weakness and dizziness after doing some yard work. He is admitted and stabilized and is now back to his baseline. He has a history of significant peripheral vascular disease and has had a chronic wound on the plantar surface of the left foot over the 1st metatarsophalangeal joint. He is followed at [facility] since last November and they have been doing wound care in the office and they have a wound nurse who sees him in home. According to the patient, the wound is continued to improve. PAST MEDICAL HISTORY 1. Coronary artery disease status post angioplasty and stenting. 2. History of atrial fibrillation. 3. Pacemaker placement. 4. Benign prostatic hypertrophy. 5. Hyperlipidemia. 6. Gout. 7. Chronic kidney disease. 8. Peripheral vascular disease. 9. Esophagitis. 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 11. Adenomatous polyps in colon. 12. Hypertension. 13. Previous TIA. 14. History of bladder cancer, treated by cystoscopy. 15. Spinal fusion. 16. He has had a history of some elbow surgery. ALLERGIES Allergic to morphine. MEDICATIONS Home medications include allopurinol, calcitriol, Coreg, Plavix, colestipol, Lomotil, Lasix, Neurontin, Lopid, Vicodin, Zestril, Protonix, ropinirole, Flomax, and Coumadin. FAMILY HISTORY Vascular disease. SOCIAL HISTORY Currently lives alone. Nonsmoker and nondrinker. REVIEW OF SYSTEMS Unit #: [id number] #: [id number] Patient: ROB HOYOS Otherwise unremarkable. PHYSICAL EXAMINATION GENERAL: He is awake, alert, and oriented, in no acute distress. A very pleasant gentleman. VITAL SIGNS: Temperature is 98.1, pulse 71, respirations 19, and blood pressure 109/70. HEENT: Unremarkable. CARDIAC: Irregular rhythm. LUNGS: Clear. ABDOMEN: Soft. EXTREMITIES: Examination of the left foot shows on the left foot he has about a 5 to 6 mm in diameter punctate wound. There is no purulent drainage. No cellulitis. He does not have any callus or necrotic tissue that needs debridement. NEUROLOGIC: Grossly intact. DIAGNOSTIC STUDIES LABORATORY RESULTS: Chemistry showed BUN and creatinine 31 and 2.0, but that is probably his baseline. Electrolytes unremarkable. INR is 2.6. White count is 5000, hemoglobin 9, and platelets 139,000. IMAGING STUDIES: No x-rays at this time. ASSESSMENT AND PLAN An 85-year-old gentleman with peripheral vascular disease. He has a chronic left plantar surface wound over the 1st metatarsophalangeal joint. He has been treated and followed as an outpatient at [facility] and has home wound nurse followup at home. Per the patient, it is markedly and greatly improved with treatment. The wound on examination is clean with no purulent drainage or necrotic tissue and no debridement is necessary at this time. I have suggested they continue his current management, then he follow up with learning center coordinator as an outpatient. From our standpoint, he can be discharged to home and continue his current wound management. Dictated by... Magi Loja/samir TD: 08/12/2016 12:34 JOB #: [id number] CONSULTATION REPORT Page 1 of 1 X Nazario Leija MD CONSULTATION REPORT
--- NOTE | ~2016-08-08 | CO ---
Unit #: [id number] #: [id number] Patient: ROB HOYOS [id number] [address] [place], [place] [address] [id number] I MR#: [id number] NAME: ROB HOYOS ROOM: 547 Age: 85 Sex: M Admission Date: 08/08/2016 : 1930 Attending Physician: Ahmet Zheng M.D. Primary Care Physician: Ebenezer Weiss M.D. CONSULTATION REPORT REASON FOR CONSULTATION Renal failure. HISTORY OF PRESENT ILLNESS The patient is an 85-year-old white male with significant past medical history of atrial fibrillation, congestive heart failure and chronic kidney disease - stage 3, but creatinine has been stable for the last few years anywhere between 1.6 to 1.9. The patient was also diagnosed with recent bladder cancer and had cystoscopy with fulguration done. Patient mainly came because of nausea and vomiting going on for the last few days but also getting more short of breath, weak. Yesterday, he was working in his garden and got extremely weak and tired and more short of breath. He also had some nausea and vomiting at that time. Transferred to the ER, found to have slightly increased troponin. Nausea and vomiting persisted, and he vomited again earlier this morning. He is feeling slightly better than yesterday. Overnight he was on IV fluids without any improvement in his symptoms. He has more swelling of the lower extremities, minimal orthopnea but definitely significant dyspnea on exertion, as per him. PAST MEDICAL HISTORY Significant for coronary artery disease with stent placement, history of permanent atrial fibrillation, history of pacemaker placement, history of biventricular congestive heart failure, history of gout, history of chronic kidney disease - stage 3, history of TIA in the past, history of spinal fusion and right elbow surgery. SOCIAL HISTORY Patient lives alone. He used to smoke but quit it about 50 years back. FAMILY HISTORY Significant for heart problems. HOME MEDICATIONS Reviewed. They include lisinopril, Neurontin, Lopid, Zestril, Protonix, ropinirole, Flomax. REVIEW OF SYSTEMS Review of systems is explained in history of present illness. PHYSICAL EXAMINATION GENERAL: On examination, the patient is an elderly male, not in any acute distress. VITAL SIGNS: Last blood pressure is 100/53, pulse is 70, temperature 98, respiratory rate is 28. Unit #: [id number] #: [id number] Patient: ROB HOYOS HEAD AND NECK: Pupils are reactive to light. Extraocular movements are intact. Mucous membranes are moist. Neck is supple. There is slight JVD on the right side. CHEST: Patient has bilateral air entry with some crackles at the bases. HEART: Regular rate and rhythm. A 2/6 systolic murmur. ABDOMEN: Abdomen is soft. Bowel sounds are positive. No guarding. No rigidity. EXTREMITIES: Extremities have 2 to 3+ edema on both lower extremities and with a dressing on the left lower foot because of the open wound. DIAGNOSTIC STUDIES LABS: Labs were reviewed. Creatinine is increased to 2.9, bicarb 19, potassium 4.1, sodium 133. Hemoglobin 31, hemoglobin 10. ASSESSMENT AND PLAN 1. Acute kidney injury. 2. Hyponatremia. 3. Mild metabolic acidosis. 4. Likely congestive heart failure clinically. 5. UTI possible but patient's WBCs and RBCs in the urine may be related to the patient's history of bladder cancer. 6. Anemia. DISCUSSION At this time, the patient seems to be clinically volume overloaded with increased edema, and I am going to stop IV fluids, start the patient on IV diuretics. That will be Lasix 40 mg IVP at this time. Follow up with repeat labs later today and tomorrow morning. Today's labs are also still pending. The patient will be seen by the wire stitcher machine because of the increased edema. May need a repeat echocardiogram. Repeat cardiac enzymes were also ordered at this time. The patient's bladder cancer, which seems to be stable at this time. Thank you for letting me evaluate and take care of this patient. Will followup patient tomorrow morning. Dictated by... Magi Vu TD: 08/09/2016 09:06 JOB #: [id number] CONSULTATION REPORT Page 1 of 1 X Chase Dubon MD CONSULTATION REPORT
--- NOTE | ~2016-08-08 | HP ---
Unit #: [id number] #: [id number] Patient: ROB HOYOS [id number] [address] [place], [place] [address] [id number] MR#: [id number] NAME: ROB HOYOS. ROOM: 62252 Age: 85 Sex: M Admission Date: 08/08/2016 : 1930 Attending Physician: Evert Fitzpatrick M.D. Primary Care Physician: Ebenezer Weiss M.D. HISTORY AND PHYSICAL CHIEF COMPLAINT Generalized weakness, one episode of diarrhea and nausea and vomiting. DISCUSSION This is an 85-year-old gentleman who has a past medical history of chronic kidney disease, history of peripheral vascular disease with chronic left foot wound, chronic permanent afib, history of BPH, hyperlipidemia, gout, hypertension, permanent pacemaker placement. He was brought to the emergency room with chief complaint of feeling generalized weakness, having nausea and diarrhea this morning one time, vomited three times, with dark urine and on the workup in the ER patient was found to be BUN 74, creatinine 2.9, glucose 194, and urine culture with a UTI, WBCs 10-25 and he has been admitted for acute kidney injury and UTI. He denied chest pain. He denies fever or chills, cough, shortness of breath, loss of consciousness, headache or any other complaint. PAST MEDICAL HISTORY 1. History of coronary artery disease status post PCI, stent with normal left ventricular function/moderate aortic stenosis. 2. History of permanent afib. 3. History of permanent pacemaker placement in the past. 4. Benign prostate hypertrophy. 5. Hyperlipidemia. 6. History of gout. 7. Chronic kidney disease. 8. Peripheral vascular disease with chronic wound left foot. 9. History of VOLLEYBALL REFEREE in June 2016 shows esophagitis/Weaver esophagus. 10. Colonoscopy in June 2016 with polypectomy. 11. History of hypertension. 12. History of possible TIA per old records. 13. History of bladder cancer status post cystoscopy and fulguration. 14. History of spinal fusion. 15. History of right elbow surgery. SOCIAL HISTORY He lives alone. He stopped smoking 50 years ago, does not drink alcohol, no other illicit drug use. FAMILY HISTORY Positive for coronary artery disease. ALLERGIES Morphine. Unit #: [id number] #: [id number] Patient: ROB HOYOS MEDICATION FROM HOME Is followin. Allopurinol 300 mg daily. 2. Calcitriol 0.25 mcg daily. 3. Coreg 6.25 b.i.d. 4. Plavix 75 mg daily. 5. Colestipol 1 g t.i.d. 6. Lomotil 2.5 mg t.i.d. 7. Lasix 40 mg daily. 8. Neurontin 100 mg b.i.d. 9. Lopid 600 mg b.i.d. 10. Vicodin 5/325 one tablet q.i.d. p.r.n. 11. Zestril 2.5 mg daily. 12. Protonix 40 mg daily. 13. Ropinirole 1 mg q.h.s. 14. Flomax 0.4 mg daily. 15. Warfarin 3 mg q.h.s. REVIEW OF SYSTEMS All review of systems negative except per history of present illness. PHYSICAL EXAMINATION GENERAL: On examination elderly may lying in the bed comfortably, currently not in any distress. On general examination he is alert, awake, oriented x3, not in any distress. VITAL SIGNS: Current vitals are following: Temperature 98.1, heart rate 70, respiratory rate 28, blood pressure was 100/53, oxygen is 95% on room air. HEENT: On HEENT examination pupils equally react to light and accommodation. Extraocular muscles intact. Pharynx benign. NECK: Supple. No jugular venous distention. No thyromegaly. LUNGS: Clear to auscultation. No rhonchi. No wheezing. HEART: S1, S2, regular rate and rhythm. A 2/6 systolic murmur. ABDOMEN: Abdomen is soft, nontender, nondistended. Bowel sounds positive. EXTREMITIES: Inspection normal. There is 1+ edema positive on both lower extremities and there is left foot with a bandage. There is a mild open wound on the palmar aspect of the left foot. NEUROLOGICAL: He is alert and oriented x3. Cranial nerves II-XII intact. Hard of hearing. Power 5/5 on both sides. DIAGNOSTIC STUDIES LABORATORY: Current laboratory workup is following: UA is cloudy appearance, leukocyte esterase 1+, WBC 10-25. Chemistry: Sodium 133, potassium 4.1, chloride 102, CO2 19, glucose 194, BUN 74, creatinine 2.9. LFTs within normal limits. Troponin less than 0.05. White count 7.5, hemoglobin 10, hematocrit 31, platelet is 142. INR is pending. ASSESSMENT AND PLAN 1. Urinary tract infection: Start the patient on IV Rocephin. 2. Acute kidney injury on chronic kidney disease: Hold Lasix and the lisinopril. Give IV fluid. Ask Nephrology, Dr. Dubon, to evaluate. 3. History of coronary artery disease with previous stent/hypertension/moderate aortic stenosis/chronic permanent atrial fibrillation on Coumadin: Monitor INR. 4. History of peripheral vascular disease with chronic left foot wound. 5. Benign prostate hypertrophy. 6. Hyperlipidemia. Unit #: [id number] #: [id number] Patient: ROB HOYOS 7. Gout. 8. History of esophagitis/Weaver esophagus. 9. History of bladder cancer with previous cystoscopy and fulguration. PLAN 1. Plan is to admit to the hospital. 2. Start on IV fluid and monitor closely. 3. IV Rocephin. 4. His BUN and creatinine were in May BUN was 42, creatinine was 1.6 and hold Lasix and monitor closely. 5. Ask Nephrology to evaluate. Dictated by Magi Moon/lucero TD: 08/08/2016 22:23 JOB #: [id number] HISTORY AND PHYSICAL Page 1 of 1 X X HISTORY AND PHYSICAL
--- NOTE | ~2016-08-08 | DS ---
Unit #: [id number] #: [id number] Patient: ROB HOYOS [id number] [address] [place], [place] [address] [id number] MR#: [id number] NAME: ROB HOYOS. ROOM: 547 Age: 85 Sex: M Admission Date: 08/08/2016 : 1930 Discharge Date: 08/11/2016 Attending Physician: Ahmet Zheng M.D. Primary Care Physician: Ebenezer Weiss M.D. DISCHARGE SUMMARY REASON FOR ADMISSION Acute kidney injury, nausea and vomiting. HISTORY OF PRESENT ILLNESS/HOSPITAL COURSE The patient is a very pleasant 85-year-old male with fairly complicated past medical history who presented with above. Consultation was placed to Dr. Dubon of [facility] after initial creatinine was done and was 2.9, his routine baseline is closer to 2.0. The patient received IV fluids. His diuretics were initially placed on hold. He responded appropriately. He was able to tolerate diet well. His creatinine today at time of discharge is 2.0. Consultation was also placed to Dr. Brar of cardiology services secondary to prior history of atrial fibrillation as well as heart failure. He continued to follow the patient. His medications were adjusted. His Coreg dosage was decreased secondary to persistent hypotension. Secondary to chronic lower extremity nonhealing ulcer, consultation was placed to Dr. Leija of [facility]. He saw and evaluated the patient and recommended an outpatient followup with Dr. Lopez of podiatric services for ongoing care. At this point in time, patient is clinically stable for discharge. He has tolerated diet well. At time of discharge, patient's creatinine is 2.0. At time of discharge, patient's hemoglobin is currently 9.0 which likely represents his baseline. FINAL DISCHARGE DIAGNOSES 1. Generalized weakness. 2. Acute kidney injury. 3. Intractable nausea and vomiting, now resolved. 4. Chronic kidney disease. Baseline creatinine 2.0. 5. Permanent atrial fibrillation. 6. Chronic anticoagulation with Coumadin. 7. Prior history of permanent pacemaker. 8. Benign prostatic hypertrophy. 9. Hyperlipidemia. 10. Gout. 11. Peripheral vascular disease followed by Dr. Broderick as an outpatient. 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 Galaviz. 13. Colonoscopy with prior history of polypectomy 2016. 14. Hypertension. 15. Bladder cancer. FINAL DISCHARGE MEDICATIONS Remain the same as home medications, with the exception of Coreg which has now been decreased to 3.125 mg p.o. b.i.d., and they include the followin. Flomax 0.4 mg p.o. h.s. 2. Coumadin 3 mg p.o. daily. 3. Neurontin 100 mg p.o. b.i.d. 4. Lomotil 2.5 mg p.o. q.8 h. p.r.n. 5. Colestid 1 gram p.o. t.i.d. p.r.n. 6. Lopid 600 mg p.o. b.i.d. 7. Requip 1 mg p.o. h.s. 8. Coreg 3.125 mg p.o. b.i.d. 9. Lasix 40 mg p.o. daily. 10. Zestril 2.5 mg p.o. daily. 11. Allopurinol 300 mg p.o. daily. 12. Vicodin 5/300 one tablet p.o. q.6 h. p.r.n. 13. Plavix 75 mg p.o. daily. 14. Protonix 40 mg daily. 15. Calcitriol 0.25 mg p.o. daily. DISCHARGE CONDITION Stable. DISCHARGE DISPOSITION Home. FOLLOWUP 1. PCP in 7-10 days. 2. Podiatry 7-10 days. Dictated by... Magi Triplett/cat TD: 08/12/2016 22:25 JOB #: [id number] Unit #: [id number] #: [id number] Patient: ROB HOYOS DISCHARGE SUMMARY Page 1 of 1 X Ahmet Zheng MD DISCHARGE SUMMARY
--- NOTE | ~2016-08-08 | EKG ---
PATIENT: ROB HOYOS UNIT #: [id number] Ventricular Rate: 70 BPM Atrial Rate: 53 BPM QRS Duration: 188 ms Q-T Interval: 466 ms QTC Calculation(Bezet): 503 ms Calculated R [place]: -63 degrees Calculated T [place]: 114 degrees Diagnosis Line: Ventricular-paced rhythm Diagnosis Line: Abnormal ECG Diagnosis Line: When compared with ECG of 18-JUL-2016 11:16, Diagnosis Line: No significant change was found Diagnosis Line: Confirmed by CHICHO ORDAZ MD ([id number]) on 08/11/2016 Diagnosis Line: 4:09:44 PM INTERPRETING MD: ORLIN GILLESPIE
--- NOTE | ~2016-08-08 | CR72 ---
[facility] A Service of [facility] & [facility] RADIOLOGY TEXT RESULTS PATIENT: ROB HOYOS LOCATION: [place] [address] : 30 UNIT #: [id number] AGE: [address]: Ahmet Zheng MD SEX: M ORDER DR: [id number] [facility] [address] [facility]. [place], [place] [address] [id number] MR#: [id number] Acc #: [id number] NAME: ROB HOYOS : 1930 SEX: M STUDY DATE/TIME: 08/09/2016 08:13 UNIT: [facility] ROOM: [facility] STUDY DESCRIPTION: CR Chest Single View Portable Attending Physician: Ahmet Zheng M.D. Ordering Physician: Cyrus Brar M.D. Primary Care Physician: Ebenezer Weiss M.D. MEDICAL IMAGING REPORT This report is preliminary unless electronic signature is present EXAM Chest portable, 08/09/16 08:13 hours HISTORY An 85-year-old man with history of bladder cancer. Patient presents with weakness and dehydration today. COMPARISON 03/19/2016 FINDINGS Single upright view is a somewhat lordotic projection. Allowing for this, there is stable mild cardiac prominence and stable tortuous aorta. Pulmonary vascularity is normal. The lungs are clear and there are no effusions. Stable pacer device. IMPRESSION No acute cardiopulmonary findings. No appreciable change from 03/19/2016. Dictated by... Joseline Kat M.D. THIS IS AN ELECTRONICALLY VERIFIED REPORT Joseline Kat M.D. at 08/09/2016 2:09 PM CHRISTOPHER/estefany TD: 08/09/2016 12:08 JOB #: [id number] MEDICAL IMAGING REPORT Page 1 of 1 COPY
--- NOTE | ~2016-08-08 | CO ---
Unit #: [id number] #: [id number] Patient: ROB HOYOS [id number] [address] [place], [place] [address] [id number] I MR#: [id number] NAME: ROB HOYOS ROOM: 547 Age: 85 Sex: M Admission Date: 08/08/2016 : 1930 Attending Physician: Ahmet Zheng M.D. Primary Care Physician: Ebenezer Weiss M.D. Consultation Date: 08/09/2016 CONSULTATION REPORT REASON FOR CONSULTATION Congestive heart failure. HISTORY OF PRESENT ILLNESS The patient is an 85-year-old male well known to Dr. Brar who has a prior past medical history of chronic systolic and diastolic CHF, permanent atrial fibrillation on Coumadin, moderate aortic stenosis, hypertension, hyperlipidemia and tachybrady syndrome status post permanent pacemaker in February of 2016. He does have a history of coronary artery disease with his last cath being in 2014. It showed mid LAD 95% to 99% stenosis. First diagonal was 99% stenosis and left circumflex was 100% stenosis at the first OM. He had a drug-eluting stent placed to the first diagonal and the mid LAD but there was an unsuccessful angioplasty of the first OM. Additional past medical history includes chronic kidney disease, diabetes, peripheral arterial disease with a nonhealing ulcer on his right foot. The patient presented to the emergency department with a chief complaint of a generalized weakness. He reported that he was sitting on a bucket in his yard working in the garden. He had been outside for approximately 30 minutes. The patient felt more short of breath than his baseline and was unable to stand up. His neighbors were able to help his stand and patient presented to the emergency department. He denied any nausea, vomiting, fever, chills or chest pain. In the ER, the patient was found to have a BUN of 74, creatinine of 2.9, glucose 94 and possible urinary tract infection. His initial point of care troponin is less than 0.05 and 0.11. EKG showed a ventricular paced rhythm. Cardiology has been consulted for concerns with congestive heart failure. PAST MEDICAL HISTORY 1. A 2-D echocardiogram, on October 10, 2015, shows an EF of 65%. AV area is 1.22 cm2 with max gradient of 24 mmHg and mean of 11 mmHg. Moderate aortic stenosis. Mild to moderate mitral regurgitation. 2. Cardiac cath from 2014 shows a mid LAD 95 to 99% stenosis. First diagonal was 79% stenosed and the left circumflex 100% stenosed at the first M. He had a drug-eluting stent placed to the first diagonal and the mid LAD but there was an unsuccessful angioplasty at the first OM. 3. Tachybrady syndrome status post permanent pacemaker in February 2016. 4. Permanent atrial fibrillation on Coumadin therapy. 5. Syncope. 6. PAD with chronic right heel ulcer, nonhealing. 7. Hypertension. 8. Hyperlipidemia. Unit #: [id number] #: [id number] Patient: ROB HOYOS 9. Diabetes type 2. 10. Chronic kidney disease stage 3. 11. Bladder cancer. 12. Moderate aortic stenosis. 13. Lifelong nonsmoker. 14. BPH. 15. Gout. PAST SURGICAL HISTORY 1. Cardiac cath as detailed above. 2. Permanent pacemaker. 3. Polypectomy and colonoscopy. 4. Cystoscopy and fulguration of the bladder. SOCIAL HISTORY The patient is a lifetime nonsmoker and rarely drinks alcohol. The patient denies illicit drug abuse. The patient endorses that he uses a cane or a walker and would be unable to walk one city block without becoming short of breath. He sleeps on one pillow at night. FAMILY HISTORY The patient states his mother and his father both had coronary artery disease and in their eighties. ALLERGIES Morphine. HOME MEDICATIONS 1. Zestril 2.5 mg p.o. daily. 2. Protonix 40 mg p.o. daily. 3. Ropinirole HCL one p.o. at bedtime. 4. Flomax 0.4 mg p.o. at bedtime. 5. Warfarin 3 mg p.o. at bedtime. 6. Lomotil 2.5 mg p.o. three times daily. 7. Lasix 40 mg p.o. daily. 8. Neurontin 100 mg p.o. b.i.d. 9. Lopid 600 mg p.o. b.i.d. 10. Vicodin 5/300 mg four times daily p.r.n. pain. 11. Allopurinol 300 mg p.o. daily. 12. Calcitriol 0.25 mcg p.o. daily. 13. Coreg 6.25 mg p.o. b.i.d. 14. Plavix 75 mg p.o. daily. 15. Colestipol HCL one gram t.i.d. REVIEW OF SYSTEMS A 10-point review of systems has been done and is considered otherwise negative except as indicated in the HPI. PHYSICAL EXAMINATION GENERAL APPEARANCE: Awake, alert, in no acute distress. VITAL SIGNS: Temperature 98.6. Heart rate 71. Respiration 12. Blood pressure 115/74. He is oxygenating 100%. HEENT: Head is atraumatic, normocephalic. Pupils are equal, round and reactive. Extraocular movements are intact. No drainage from ears or nares. NECK: Supple. Trachea is midline. Normal carotid upstrokes. CHEST: Lungs are clear. No wheezes, (1) rhonchi. CARDIOVASCULAR: Irregular. No murmurs, rubs or gallops auscultated. Unit #: [id number] #: [id number] Patient: ROB HOYOS ABDOMEN: Soft, nontender, nondistended. SKIN: Warm, dry. EXTREMITIES: The patient has 2+ right lower extremity and 1+ left lower extremity edema with nonhealing ulcer and an JESSICA wrap. NEUROLOGIC: The patient is alert and oriented x3. He is pleasant and conversant. No focal deficits. DIAGNOSTIC STUDIES LABORATORY: Today's labs are pending. However, yesterday's labs are WBC 7.5, hemoglobin 10.2, hematocrit 31.3, platelets 142. Sodium 133, potassium 4.1, chloride 102, CO2 19, BUN 74, creatinine 2.9, glucose 194. Point of care troponin is less than 0.05, 0.11. IMAGING: Chest x-ray shows mild cardiomegaly. No pulmonary edema. CARDIOVASCULAR: EKG shows ventricular paced rhythm. ASSESSMENT 1. Moderate with AV area 1.22 cm2 with max gradient 24 mmHg and mean of 11 mmHg. 2. EF of 65% per echo in October of 2015. 3. Permanent atrial fibrillation on Coumadin. 4. Permanent pacemaker secondary to tachybrady syndrome and syncope. 5. Coronary artery disease status post stent to the LAD in 2014. 6. Hypertension. 7. Hyperlipidemia. 8. Diabetes. 9. Peripheral arterial disease with nonhealing right foot ulcer. 10. Weakness. PLAN At this time, we will check orthostatics and have PT and OT evaluate the patient. Further recommendations will be per Dr. Brar. Dictated by... Hina Fitzpatrick A.P.R.N. for Cyrus Brar M.D. AM/janak TD: 08/09/2016 09:00 JOB #: [id number] CONSULTATION REPORT Page 1 of 1 X Hina Fitzpatrick APRN X CONSULTATION REPORT
[~2016-08-08 18:49] MED LIST changes: +ACETAMINOPHEN PO; +COUMADIN3 MG PO
[2016-08-08 19:22] LABS: BASOPHIL% 0.3 % (0-2.5); HEMATOCRIT 31.3 % (38.0-50.0); HEMOGLOBIN 10.2 gm/dL (13.0-16.0); LYMPHOCYTE# 0.2 X10e3 (1.0-3.5); LYMPHOCYTE% 2.2 % (17.0-45.0); MEAN CELL VOLUME 100.9 FL (83-96); MEAN CORPUSCULAR HEMOGLOBIN 32.8 PG (28-34); MEAN CORPUSCULAR HGB CONC 32.5 g/dL (30-36); MEAN PLATELET VOLUME 9.3 FL (6.5-11.5); MONOCYTE# 0.4 X10e3 (0-1.0); MONOCYTE% 5.7 % (3.0-12.0); NEUTROPHIL# 6.9 X10e3 (1.5-7.1); NEUTROPHIL% 91.8 % (40-75); PLATELET COUNT 142 X10e3 (140-420); RED BLOOD COUNT 3.11 X10e (3.90-5.60); RED CELL DISTRIBUTION WIDTH 14.9 % (11.0-15.5); WHITE BLOOD COUNT 7.5 X10e3 (4.0-10.5)
[2016-08-08 19:23] LABS: DIFF IND NO
[2016-08-08 19:28] LABS: POC - CKMB 1.6 ng/mL (0.0-7.9); POC - TROPONIN <0.05 ng/mL (<=0.05)
[2016-08-08 19:43] LABS: URINE SOURCE CLEAN CATCH
[2016-08-08 19:49] LABS: ALBUMIN SERUM 3.1 g/dL (3.5-5.0); BILIRUBIN, DIRECT 0.2 mg/dL (0.0-0.2); BILIRUBIN,INDIRECT 0.9 mg/dL (0.0-0.9); BILIRUBIN,TOTAL 1.1 mg/dL (0.2-2.0); BUN/CREATININE RATIO 25.51; CALCIUM SERUM 8.2 mg/dL (8.4-10.2); CREATININE SERUM 2.9 mg/dL (0.6-1.4); GLOM FILT RATE Estimated 18.9 mL/min (>60); POTASSIUM 4.1 mmol/L (3.5-5.1); PROTEIN TOTAL SERUM 6.3 g/dL (6.0-8.3)
[2016-08-08 19:50] LABS: URINE APPEARANCE CLOUDY; URINE BLOOD 2+ (NEG); URINE COLOR DK YELLOW; URINE GLUCOSE NEG (NEG); URINE KETONE TRACE (NEG); URINE LEUKOCYTE ESTERASE 1+ (NEG); URINE NITRATE NEG (NEG); URINE SPECIFIC GRAVITY 1.021 (1.003-1.035)
[2016-08-08 19:53] LABS: CULTURE INDICATED? YES; URINE BACTERIA AUWI NEG (NEGATIVE); URINE SQUAMOUS EPITHELIAL CELL MOD /[HPF]
[2016-08-08 19:54] LABS: URINE PROTEIN 1+ (NEG)
[2016-08-08 19:59] LABS: URINE BILIRUBIN NEG (NEG)
[2016-08-08] MEDS ORDERED: ALLOPURINOL300 MG PO (20:11)
[2016-08-08] MEDS ORDERED: CLOPIDOGREL BIS75 MG PO (20:12)
[2016-08-08] MEDS ORDERED: COREG6.25 M1 PO (20:12)
[2016-08-08] MEDS ORDERED: CALCITRIOL0.25 MC1 PO (20:12)
[2016-08-08] MEDS ORDERED: COLESTIPOL HCL1 GM PO (20:13)
[2016-08-08] MEDS ORDERED: LOMOTIL WHITE2.5 M1 PO (20:17)
[2016-08-08] MEDS ORDERED: LASIX20 MG PO (20:18)
[2016-08-08] MEDS ORDERED: NEURONTIN100 MG PO (20:18)
[2016-08-08] MEDS ORDERED: LOPID600 MG PO (20:18)
[2016-08-08] MEDS ORDERED: VICODIN 5-3001 EACH PO (20:19)
[2016-08-08] MEDS ORDERED: ZESTRIL2.5 M1 PO (20:20)
[2016-08-08] MEDS ORDERED: PANTOPRAZOLE SO40 MG PO (20:20)
[2016-08-08] MEDS ORDERED: FLOMAX0.4 M1 PO (20:21)
[2016-08-08] MEDS ORDERED: ROPINIROLE HCL1 MG PO (20:21)
[2016-08-08] MEDS ORDERED: WARFARIN SODIUM3 MG PO (20:22)
[2016-08-08 20:36] LABS: INR 2.1; PROTHROMBIN TIME (PATIENT) 22.2 SECONDS (9.6-11.5)
[2016-08-08 21:59] LABS: POC - CKMB 2.8 ng/mL (0.0-7.9); POC - TROPONIN 0.11 ng/mL (<=0.05)
[2016-08-09 08:50] LABS: BASOPHIL% 0.1 % (0-2.5); EOSINOPHIL% 0.1 % (0.0-7.0); HEMOGLOBIN 9.2 gm/dL (13.0-16.0); LYMPHOCYTE# 0.5 X10e3 (1.0-3.5); LYMPHOCYTE% 9.4 % (17.0-45.0); MEAN CELL VOLUME 100.2 FL (83-96); MEAN CORPUSCULAR HEMOGLOBIN 32.9 PG (28-34); MEAN CORPUSCULAR HGB CONC 32.8 g/dL (30-36); MONOCYTE# 0.5 X10e3 (0-1.0); MONOCYTE% 9.5 % (3.0-12.0); NEUTROPHIL# 4.5 X10e3 (1.5-7.1); NEUTROPHIL% 80.9 % (40-75); PLATELET COUNT 121 X10e3 (140-420); RED CELL DISTRIBUTION WIDTH 15.2 % (11.0-15.5); WHITE BLOOD COUNT 5.6 X10e3 (4.0-10.5)
[2016-08-09 08:51] LABS: DIFF IND NO
[2016-08-09 09:34] LABS: BUN/CREATININE RATIO 27.4; CREATININE SERUM 2.7 mg/dL (0.6-1.4); GLOM FILT RATE Estimated 20.6 mL/min (>60); POTASSIUM 4.1 mmol/L (3.5-5.1)
[2016-08-09 13:30] LABS: CREATININE,RANDOM URINE 103 mg/dL; SODIUM URINE RANDOM 39 mmol/L
[2016-08-10 05:33] LABS: HEMATOCRIT 27.1 % (38.0-50.0); HEMOGLOBIN 8.9 gm/dL (13.0-16.0); MEAN CELL VOLUME 100.8 FL (83-96); MEAN CORPUSCULAR HEMOGLOBIN 33.3 PG (28-34); MEAN PLATELET VOLUME 9.7 FL (6.5-11.5); RED BLOOD COUNT 2.69 X10e (3.90-5.60); RED CELL DISTRIBUTION WIDTH 15.2 % (11.0-15.5); WHITE BLOOD COUNT 4.9 X10e3 (4.0-10.5)
[2016-08-10 06:23] LABS: ALBUMIN SERUM 2.5 g/dL (3.5-5.0); BILIRUBIN,TOTAL 0.5 mg/dL (0.2-2.0); BUN/CREATININE RATIO 30.83; CALCIUM SERUM 7.9 mg/dL (8.4-10.2); CREATININE SERUM 2.4 mg/dL (0.6-1.4); GLOM FILT RATE Estimated 23.7 mL/min (>60); PHOSPHOROUS 4.4 mg/dL (2.5-4.6); POTASSIUM 3.9 mmol/L (3.5-5.1); PROTEIN TOTAL SERUM 5.1 g/dL (6.0-8.3)
[2016-08-11 06:12] LABS: HEMATOCRIT 27.9 % (38.0-50.0); MEAN CORPUSCULAR HEMOGLOBIN 32.3 PG (28-34); MEAN CORPUSCULAR HGB CONC 32.3 g/dL (30-36); MEAN PLATELET VOLUME 9.9 FL (6.5-11.5); RED BLOOD COUNT 2.79 X10e (3.90-5.60); RED CELL DISTRIBUTION WIDTH 15.4 % (11.0-15.5)
[2016-08-11 06:14] LABS: BUN/CREATININE RATIO 35.5; GLOM FILT RATE Estimated 29.6 mL/min (>60); MAGNESIUM 1.9 mg/dL (1.6-3.0)
[2016-08-11 06:41] LABS: INR 2.6; PROTHROMBIN TIME (PATIENT) 28.3 SECONDS (9.6-11.5)
[2016-08-11] MEDS ORDERED: WOUND CARE (10:08)
[2016-08-23] MEDS ORDERED: COLESTID (11:28)
[2016-08-23] MEDS ORDERED: COREG3.125 MG PO (11:30)
== END 2016-08-11 12:15 | disposition home health service (06) | DRG 683 ==
LOC: CED 18:49 → CEDOF 21:01 → CED 21:19 → CEDOF 21:19 → C5B 22:26
PROVIDERS: Emergency Medicine; Family Medicine; Internal Medicine; Internal Medicine Nephrology
DX: N17.9 Acute kidney failure, unspecified (principal); N39.0 Urinary tract infection, site not specified; E11.22 Type 2 diabetes mellitus with diabetic chronic kidney disease; I13.0 Hypertensive heart and chronic kidney disease with heart failure and stage 1 through stage 4 chronic kidney disease, or unspecified chronic kidney disease; I50.42 Chronic combined systolic (congestive) and diastolic (congestive) heart failure; E87.1 Hypo-osmolality and hyponatremia; Z95.5 Presence of coronary angioplasty implant and graft; Z95.0 Presence of cardiac pacemaker; N40.0 Benign prostatic hyperplasia without lower urinary tract symptoms; I73.9 Peripheral vascular disease, unspecified; Z86.73 Personal history of transient ischemic attack (TIA), and cerebral infarction without residual deficits; Z85.51 Personal history of malignant neoplasm of bladder; Z87.891 Personal history of nicotine dependence; I35.0 Nonrheumatic aortic (valve) stenosis; M10.9 Gout, unspecified; Z79.01 Long term (current) use of anticoagulants; I48.2 Chronic atrial fibrillation; N18.3 Chronic kidney disease, stage 3 (moderate); E11.621 Type 2 diabetes mellitus with foot ulcer; L97.519 Non-pressure chronic ulcer of other part of right foot with unspecified severity; D64.9 Anemia, unspecified; I25.119 Atherosclerotic heart disease of native coronary artery with unspecified angina pectoris
CPT/HCPCS: 36415; 71010; 80048; 80053; 80076; 81003; 82553; 82570; 83735; 83880; 84100; 84300; 84484; 85025; 85027; 85610; 85652; 86140; 87086; 93005; 96365; 97116; 97163; 97167; 97530; 99284; G8978-GP; G8979-GP; G8987-GO; G8988-GO; J0696; J1940; J2405

== ENCOUNTER → 2016-08-23 | Outpatient (CLI) | payer OTHER ==
[~2016-08-23] MED LIST changes: +CALCITRIOL0.25 MC1 PO; +CLOPIDOGREL BIS75 MG PO; +COLESTID; +COREG3.125 MG PO; +COREG6.25 M1 PO; +LASIX20 MG PO; +PANTOPRAZOLE SO40 MG PO; +VICODIN 5-3001 EACH PO; +WARFARIN SODIUM3 MG PO; +WOUND CARE
--- NOTE | ~2016-08-23 | EKG ---
PATIENT: ROB HOYOS UNIT #: [id number] Ventricular Rate: 74 BPM Atrial Rate: 288 BPM QRS Duration: 190 ms Q-T Interval: 460 ms QTC Calculation(Bezet): 510 ms Calculated R [place]: -55 degrees Calculated T [place]: 111 degrees Diagnosis Line: Ventricular-paced rhythm with frequent Premature Diagnosis Line: ventricular complexes Diagnosis Line: Abnormal ECG Diagnosis Line: When compared with ECG of 08-AUG-2016 19:23, Diagnosis Line: Premature ventricular complexes are now Present Diagnosis Line: Vent. rate has increased BY 4 BPM Diagnosis Line: Confirmed by CLIFTON RIVAS MD ([id number]) on Diagnosis Line: 08/24/2016 2:57:25 PM INTERPRETING MD: SUMAYA
[2016-08-23 12:44] LABS: HEMATOCRIT 28.2 % (38.0-50.0); HEMOGLOBIN 9.2 gm/dL (13.0-16.0); MEAN CORPUSCULAR HEMOGLOBIN 32.3 PG (28-34); MEAN CORPUSCULAR HGB CONC 32.6 g/dL (30-36); MEAN PLATELET VOLUME 8.3 FL (6.5-11.5); RED BLOOD COUNT 2.85 X10e (3.90-5.60); RED CELL DISTRIBUTION WIDTH 15.6 % (11.0-15.5); WHITE BLOOD COUNT 7.3 X10e3 (4.0-10.5)
[2016-08-23 13:13] LABS: BUN/CREATININE RATIO 29.5; CALCIUM SERUM 8.6 mg/dL (8.4-10.2); GLOM FILT RATE Estimated 29.6 mL/min (>60); POTASSIUM 5.2 mmol/L (3.5-5.1)
== END | disposition home or self-care (01) ==
LOC: CAMB 10:34 → EDSTATUS 11:00
PROVIDERS: Surgery Vascular Surgery
DX: E78.5 Hyperlipidemia, unspecified (principal); I70.299 Other atherosclerosis of native arteries of extremities, unspecified extremity; R94.31 Abnormal electrocardiogram [ECG] [EKG]
CPT/HCPCS: 36415; 80048; 85027; 86850; 86900; 86901; 93005

== ENCOUNTER 2016-08-26 08:39 | Inpatient (IN) | payer OTHER ==
--- NOTE | ~2016-08-26 | DS ---
Unit #: [id number] #: [id number] Patient: ROB HOYOS [id number] [place] [id number] [facility]. [place], [place] [address] [id number] MR#: [id number] NAME: ROB HOYOS. ROOM: [facility] Age: 85 Sex: M Admission Date: 08/26/2016 : 1930 Discharge Date: 08/30/2016 Attending Physician: Yovana Broderick M.D. Primary Care Physician: Ebenezer Weiss M.D. DISCHARGE SUMMARY CONSULTANTS INVOLVED Urology, Dr. Rodriguez, as well as Dr. Matute for rehabilitation. ADMITTING DIAGNOSIS Peripheral artery disease. 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 BRIEF HOSPITALIZATION Patient was admitted on August 26, 2016 for an elective left above knee amputation. Following the surgery he had urinary retention. Urology was consulted to assist in management. A Bailey catheter indwelling was placed and ultimately decided that would be left in upon discharge. He is to follow up with Dr. Rodriguez as an outpatient in one week to have the Bailey removed. He received one unit of packed red blood cells postoperatively. He received a left leg AmpuShield from [facility]. On August 29 he complained of some constipation so his home dose of Lomotil was discontinued. On August 30 he continued to complain of constipation so he was given MiraLAX as well as Dulcolax suppository and was able to have a bowel movement. On August 30, 2016 a bed was available at [facility] and he will be discharged to there. PHYSICAL EXAMINATION VITAL SIGNS: Temperature 98, heart rate 75, respiratory rate 19, blood pressure 124/59. ASSESSMENT: Patient is awake, alert and oriented. HEART: Regular rate and rhythm. LUNGS: Lung sounds clear. Nonlabored respiration. EXTREMITIES: Left leg in an AmpuShield. DIAGNOSTIC STUDIES LABORATORY VALUES: Sodium 135, potassium 4.4, chloride 107, CO2 22, BUN 42, creatinine 1.2, glucose 137, hemoglobin 8.1, hematocrit 25.2, WBC 6.1, platelets 238. DISCHARGE MEDICATIONS Meds for discharge include: 1. Flomax 0.4 mg p.o. q.h.s. 2. Warfarin 3 mg p.o. q.h.s. 3. Neurontin 100 mg p.o. b.i.d. 4. Colestipol 1 g t.i.d. 5. Lopid or gemfibrozil 600 mg p.o. b.i.d. 6. Ropinirole 1 mg p.o. q.h.s. 7. Coreg 3.125 mg p.o. b.i.d. Unit #: [id number] #: [id number] Patient: ROB HOYOS 8. Furosemide 40 mg p.o. daily. 9. Lisinopril 2.5 mg p.o. daily. 10. Allopurinol 300 mg daily. 11. Plavix 75 mg daily. Mg p.o. daily. 12. Protonix 40 mg daily. 13. Calcitriol 0.25 mcg p.o. daily. 14. Pain control Bagley 5/325 q.4 h. p.r.n. pain. DISPOSITION To rehabilitation. DISCHARGE ORDERS Include: 1. Discharge to rehab. 2. Removal all IVs. 3. Bailey catheter to remain in place. 4. The patient is to follow up with urology, Dr. Rodriguez in one week. 5. Follow up with Dr. Broderick in four weeks for left staple removal from the stump site. Only Dr. Broderick or his office to remove from left leg stump. 6. Wear AmpuShield when out of bed and when working with physical therapy. 7. Okay to participate with physical therapy. CONDITION Stable. Dictated by... Aristeo Sanders APRN for Magi Bolton/lucero TD: 08/30/2016 20:10 JOB #: [id number] DISCHARGE SUMMARY Page 1 of 1 X X DISCHARGE SUMMARY
--- NOTE | ~2016-08-26 | CO ---
Unit #: [id number] #: [id number] Patient: ROB HOYOS [id number] [address] [place], [place] [address] [id number] I MR#: [id number] NAME: ROB HOYOS. ROOM: [facility] Age: 85 Sex: M Admission Date: 08/26/2016 : 1930 Attending Physician: Yovana Broderick M.D. Primary Care Physician: Ebenezer Weiss M.D. Consultation Date: 08/27/2016 CONSULTATION REPORT CHIEF COMPLAINT Bailey trauma. HISTORY OF PRESENT ILLNESS Mr. Hoyos is an 85-year-old gentleman, who seen my partner, Dr. Rodriguez with history of bladder cancer. A catheter was placed apparently in the OR, but was not draining. Nursing staff on the floor. We placed this catheter and he had bloody urine on return, but the first catheter was not in the bladder completely. He has history of bladder cancer, but has not had recurrent per the patient in the past 2 to 3 years. PAST MEDICAL HISTORY TURBT, coronary artery disease, chronic kidney disease, hypertension, TIA, spinal fusion, elbow surgery, peripheral vascular disease, gout, pacemaker, atrial fibrillation. MEDICATIONS Coumadin, Flomax, ropinirole, Protonix, Zestril, Vicodin, Lopid, Neurontin, Lasix, Lomotil, colestipol, Plavix, Coreg, calcitriol, allopurinol. FAMILY HISTORY Noncontributory. REVIEW OF SYSTEMS Negative except for some leg pain. He is status post amputation. ALLERGIES Morphine. PHYSICAL EXAMINATION VITAL SIGNS: He is afebrile. Vital signs stable. GENERAL: No acute distress. Trachea is midline. PULMONARY: Benign. CARDIAC: Benign. ABDOMEN: Soft. No rebound. No guarding. EXTREMITIES: He has a bandage on his left lower extremity from amputation. : Bailey catheters in place. Urine is blood tinged. Did not perform prostate exam. NEUROLOGIC: Cranial nerves 2 through 12 intact. DIAGNOSTIC STUDIES LABORATORY RESULTS: Creatinine 2.2, urinalysis from 08/08/2016. Unit #: [id number] #: [id number] Patient: OHLMANN,ROB A ASSESSMENT Bailey trauma, history of bladder cancer. We will leave catheter until he is ambulatory. We will check urinalysis and C and S. Thank you for the chance to participate in this care. Dictated by... Magi Kaur/samir TD: 08/27/2016 15:37 JOB #: [id number] CC: Yovana Broderick M.D. CONSULTATION REPORT Page 1 of 1 X Johnny Mackey MD X CONSULTATION REPORT
--- NOTE | ~2016-08-26 | OR ---
Unit #: [id number] #: [id number] Patient: ROB HOYOS [id number] [address] [place], [place] [address] [id number] MR#: [id number] NAME: ROB HOYOS ROOM: [facility] Date of Procedure: 08/26/2016 Admission Date: 08/26/2016 Surgeon: Yovana Broderick M.D. : 1930 Attending Physician: Yovana Broderick M.D. Primary Care Physician: Ebenezer Weiss M.D. OPERATIVE REPORT PRISON TEACHER Ben Iraheta. 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 PROCEDURE PERFORMED Left above-knee amputation. ANESTHESIA General. COMPLICATIONS None. ESTIMATED BLOOD LOSS 100 mL. SPECIMEN Left lower leg. INDICATIONS FOR PROCEDURE The patient is an 85-year-old gentleman with significant peripheral arterial disease that had no reconstructible options. He had ischemic gangrenous change to the left foot with significant rest pain. It was recommended a left above-knee amputation. He understood the planned procedure including the associated risks, benefits, complications, and alternatives, and he wishes to proceed. DESCRIPTION OF PROCEDURE The patient was taken to the operating room and placed on the operating room table in supine position. Following general anesthesia, the patient's left leg was prepped and draped in normal standard manner. A fishmouth incision was identified in the lower thigh and created on the skin with a marker. The incision was made with a scalpel circumferentially and then the subcutaneous tissues and the posterior flap were taken down with cautery to the superficial fascia, which was then incised. Attention was then directed to the anterior surface with the subcutaneous tissues were taken down with cautery. The musculature both Unit #: [id number] #: [id number] Patient: ROB HOYOS medially and laterally as well as anteriorly were taken down with cautery. The medial structures were divided through into the popliteal space with the popliteal artery and vein were encountered. They were dissected free circumferentially and clamped proximally and distally. They were transected and then suture ligated with 2-0 silk suture ligatures. The femur was then dissected free circumferentially. The femur was transected with an oscillating bone saw and the posterior flap was then created with the amputation knife. The left lower extremity was then taken off the field to pathology as a specimen. The wound was evaluated and bleeding points were encountered and controlled with surgical ties, suture ligatures, and cautery as needed. The anterior surface of the femur was then beveled with the oscillating bone saw and smoothed. The wound was then copiously irrigated with saline. No further bleeding was then identified. The anterior and posterior flaps were then brought together along the superficial fascial layer with interrupted 0 Vicryl suture. The incision was then washed. The skin was closed with addis. The wound was then dressed with bacitracin ointment along with staple line as well as 4x4 gauze, Kerlix gauze, and Aris wrap. The dressing was secured in place with an Ioban. The procedure was then terminated. The patient tolerated the procedure well and was taken to the recovery room in stable condition. All needle, sponge, and instrument counts were correct at the end of the case. Dictated by... Magi Washburn/samir TD: 09/07/2016 02:03 JOB #: [id number] OPERATIVE REPORT Page 1 of 1 X Yovana Broderick MD X PROCEDURE OPERATIVE NOTE
--- NOTE | ~2016-08-26 | CO ---
Unit #: [id number] #: [id number] Patient: ROB HOYOS [id number] [address] [address] [id number] MR#: [id number] NAME: ROB HOYOS. ROOM: [facility] Age: 85 Sex: M Admission Date: 08/26/2016 : 1930 Attending Physician: Yovana Broderick M.D. Primary Care Physician: Ebenezer Weiss M.D. Consultation Date: 08/27/2016 CONSULTATION REPORT REASON FOR REFERRAL Assessment for inpatient rehabilitation following a left above the knee amputation. HISTORY OF PRESENT ILLNESS Mr. Hoyos is an 85-year-old, right handed, white male with an extensive past medical history. He has been followed by his vascular surgeon due to aggressive ulceration and non-healing ulcers to his left foot due to severe peripheral vascular disease. He has failed conservative measures and was admitted to [facility] on 08/26/16. 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 Postoperatively, general medical care has continued. He has had DC of his Bailey catheter. He notes no neurologic complaints. PT/OT evals are pending. I am asked to see him in regards to rehabilitation given above complaint. PAST HISTORY Includes: 1. Severe PVD. 2. Atrial fibrillation. 3. Bladder cancer. 4. Chronic renal insufficiency. 5. Hypertension. 6. Gout. 7. Sick sinus syndrome, status post pacemaker placement. 8. CVA. 9. Diabetes. 10. CAD, status post MS. ALLERGIES Morphine. PRESENT MEDICATIONS 1. Allopurinol. 2. Calcitrol. 3. Coreg. 4. Colestipol. 5. Lasix. 6. Gabapentin. 7. Gemfibrozil. 8. Dameron. 9. Lisinopril. 10. Nitroglycerin. 11. Protonix. Unit #: [id number] #: [id number] Patient: ROB HOYOS 12. Ropinirole. 13. Flomax. 14. Coumadin. SOCIAL HISTORY The patient previously lived alone. He notes that he has family locally that can assist as needed. Denies cigarette or alcohol use. PHYSICAL EXAMINATION GENERAL: Well developed, well nourished elderly man lying in bed. He is alert, oriented x4. VITAL SIGNS: He is afebrile. Vital signs are stable. HEENT: His pupils are round and reactive to light. Face appearing symmetrical. Tongue midline. Speech clear. NECK: With good range of motion. LUNGS: Respirations approximately 12 and unlabored. HEART: Rhythm is mostly regular with a rate of approximately 84. A pacemaker is palpated to the left anterior chest wall area. ABDOMEN: Obese, nondistended, soft. EXTREMITIES: Right lower extremity with about 1+ edema. Arthritic changes to the knees. Left lower extremity consistent with recent above the knee amputation. A non-renewable dressing is in place. Bilateral upper extremity and right lower extremity active range of motion strength and sensation appear normal. Pain with attempted range to the left AKA stump. IMPRESSION 1. 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 2. Severe peripheral vascular disease. 3. Coronary artery disease. 4. Hypertension. 5. Bladder cancer. FUNCTIONAL PROBLEMS 1. Impaired ADLs. 2. Mobility. 3. Strength and endurance. 4. Gait. 5. Knowledge regarding amputee issues and stump care. DISCUSSION I had an extensive discussion with the patient at the bedside. He notes that he previously lived alone and does have some support with his family but really needs to be independent for return back home. Physical and occupational therapy evals are presently pending. We discussed acute rehab but he prefers subacute rehab as he had a family member admitted to a subacute facility with good outcome and he prefers to be transitioned there for his rehab program. Will discuss with his ed case manager in regards to subacute rehab transfer when clinically stable. Once his left AKA incision is healed, will plan to see in my office in regards to assessing for left AKA prosthetic fitting and gait training activities. Will follow as needed. Thank you very much for this referral. Unit #: [id number] #: [id number] Patient: ROB HOYOS Dictated byMagi Borrero/eliane TD: 08/27/2016 12:25 JOB #: [id number] CONSULTATION REPORT Page 1 of 1 X Choco Matute MD CONSULTATION REPORT
[2016-08-26 09:39] LABS: INR 1.4
[2016-08-26 09:59] LABS: ALBUMIN SERUM 2.8 g/dL (3.5-5.0); BILIRUBIN,TOTAL 0.6 mg/dL (0.2-2.0); BUN/CREATININE RATIO 27.03; CALCIUM SERUM 8.6 mg/dL (8.4-10.2); CREATININE SERUM 2.7 mg/dL (0.6-1.4); GLOM FILT RATE Estimated 20.6 mL/min (>60); POTASSIUM 5.2 mmol/L (3.5-5.1); PROTEIN TOTAL SERUM 6.5 g/dL (6.0-8.3)
[2016-08-27 03:56] LABS: BASOPHIL% 0.4 % (0-2.5); HEMATOCRIT 23.9 % (38.0-50.0); HEMOGLOBIN 7.7 gm/dL (13.0-16.0); LYMPHOCYTE# 0.4 X10e3 (1.0-3.5); LYMPHOCYTE% 4.9 % (17.0-45.0); MEAN CELL VOLUME 98.9 FL (83-96); MEAN CORPUSCULAR HGB CONC 32.4 g/dL (30-36); MEAN PLATELET VOLUME 9.1 FL (6.5-11.5); MONOCYTE# 0.6 X10e3 (0-1.0); MONOCYTE% 6.2 % (3.0-12.0); NEUTROPHIL% 88.5 % (40-75); PLATELET COUNT 253 X10e3 (140-420); RED BLOOD COUNT 2.41 X10e (3.90-5.60); RED CELL DISTRIBUTION WIDTH 15.6 % (11.0-15.5)
[2016-08-27 03:57] LABS: DIFF IND YES
[2016-08-27 04:14] LABS: BUN/CREATININE RATIO 28.63; CALCIUM SERUM 8.1 mg/dL (8.4-10.2); CREATININE SERUM 2.2 mg/dL (0.6-1.4); GLOM FILT RATE Estimated 26.3 mL/min (>60); POTASSIUM 4.9 mmol/L (3.5-5.1)
[2016-08-27 04:31] LABS: ANISOCYTOSIS SL; PLATELET ESTIMATE NORMAL (NORMAL)
[2016-08-27 04:32] LABS: HYPOCHROMIA SL
[2016-08-27 14:42] LABS: URINE APPEARANCE CLOUDY; URINE BILIRUBIN NEG (NEG); URINE BLOOD 3+ (NEG); URINE COLOR ORANGE; URINE GLUCOSE NEG (NEG); URINE KETONE NEG (NEG); URINE LEUKOCYTE ESTERASE 2+ (NEG); URINE NITRATE NEG (NEG); URINE PROTEIN 2+ (NEG); URINE SPECIFIC GRAVITY 1.014 (1.003-1.035); URINE UROBILINOGEN 0.2 MG/DL (NEG)
[2016-08-27 14:45] LABS: CULTURE INDICATED? YES; URBCS1 AUWI INNUM /[HPF] (0-2); URINE BACTERIA AUWI NEG (NEGATIVE); URINE SQUAMOUS EPITHELIAL CELL NONE SEEN /[HPF]; UWBCS1 AUWI 100-200 (0-5)
[2016-08-28 04:06] LABS: HEMATOCRIT 28.2 % (38.0-50.0); MEAN CELL VOLUME 96.2 FL (83-96); MEAN CORPUSCULAR HEMOGLOBIN 30.5 PG (28-34); MEAN CORPUSCULAR HGB CONC 31.7 g/dL (30-36); MEAN PLATELET VOLUME 8.5 FL (6.5-11.5); RED BLOOD COUNT 2.93 X10e (3.90-5.60); RED CELL DISTRIBUTION WIDTH 16.8 % (11.0-15.5); WHITE BLOOD COUNT 11.4 X10e3 (4.0-10.5)
[2016-08-28 04:29] LABS: CALCIUM SERUM 8.6 mg/dL (8.4-10.2); CREATININE SERUM 1.7 mg/dL (0.6-1.4); POTASSIUM 4.4 mmol/L (3.5-5.1)
[2016-08-28 12:47] LABS: INR 1.3; PROTHROMBIN TIME (PATIENT) 14.1 SECONDS (10.0-11.7)
[2016-08-30 03:19] LABS: HEMATOCRIT 25.2 % (38.0-50.0); HEMOGLOBIN 8.1 gm/dL (13.0-16.0); MEAN CELL VOLUME 96.8 FL (83-96); MEAN CORPUSCULAR HEMOGLOBIN 31.2 PG (28-34); MEAN CORPUSCULAR HGB CONC 32.3 g/dL (30-36); MEAN PLATELET VOLUME 8.5 FL (6.5-11.5); RED BLOOD COUNT 2.6 X10e (3.90-5.60); RED CELL DISTRIBUTION WIDTH 16.7 % (11.0-15.5); WHITE BLOOD COUNT 6.1 X10e3 (4.0-10.5)
[2016-08-30 03:36] LABS: INR 1.8; PROTHROMBIN TIME (PATIENT) 19.9 SECONDS (10.0-11.7)
[2016-08-30 03:40] LABS: CALCIUM SERUM 8.3 mg/dL (8.4-10.2); CREATININE SERUM 1.2 mg/dL (0.6-1.4); GLOM FILT RATE Estimated 54.8 mL/min (>60); POTASSIUM 4.4 mmol/L (3.5-5.1)
== END 2016-08-30 22:15 | DRG 240 ==
LOC: CSUR 08:39 → C4B 12:35 → CSUR 14:10 → C4B 08-30 22:15
PROVIDERS: Surgery; Surgery Vascular Surgery; Urology
PROC: 0Y6G0ZZ Detachment at Left Knee Region, Open Approach (ICD-10-PCS; principal; 2016-08-26 11:00)
PROC: 30233N1 Transfusion of Nonautologous Red Blood Cells into Peripheral Vein, Percutaneous Approach (ICD-10-PCS; 2016-08-27)
DX: I70.262 Atherosclerosis of native arteries of extremities with gangrene, left leg (principal); T83.83XA Hemorrhage due to genitourinary prosthetic devices, implants and grafts, initial encounter; E11.22 Type 2 diabetes mellitus with diabetic chronic kidney disease; I48.91 Unspecified atrial fibrillation; C67.9 Malignant neoplasm of bladder, unspecified; R31.9 Hematuria, unspecified; D62 Acute posthemorrhagic anemia; L97.509 Non-pressure chronic ulcer of other part of unspecified foot with unspecified severity; M10.9 Gout, unspecified; Z95.0 Presence of cardiac pacemaker; I25.10 Atherosclerotic heart disease of native coronary artery without angina pectoris; I25.2 Old myocardial infarction; I12.9 Hypertensive chronic kidney disease with stage 1 through stage 4 chronic kidney disease, or unspecified chronic kidney disease; N18.9 Chronic kidney disease, unspecified; M62.3 Immobility syndrome (paraplegic); Y73.8 Miscellaneous gastroenterology and urology devices associated with adverse incidents, not elsewhere classified; Z85.51 Personal history of malignant neoplasm of bladder
CPT/HCPCS: 80048; 80053; 81003; 82947; 85025; 85027; 85610; 86850; 86900; 86901; 86923; 87086; 88307; 94760; 94761; 97110; 97116; 97162; 97167; 97530; 97535; G8978-GP; G8979-GP; G8987-GO; G8988-GO; J0690; J1170; J2175; J2405; J3010; P9016

== ENCOUNTER → 2016-10-21 | Outpatient (CLI) | payer OTHER ==
--- NOTE | ~2016-10-21 | US37 ---
[facility] A Service of [facility] & [facility] RADIOLOGY TEXT RESULTS PATIENT: ROB HOYOS LOCATION: CNIV : 30 UNIT #: [id number] AGE: [address]: Ebenezer Weiss MD SEX: M ORDER DR: [id number] [facility] [address] [place], [place] [address] [id number] MR#: [id number] Acc #: [id number] NAME: ROB HOYOS. : 1930 SEX: M STUDY DATE/TIME: 10/21/2016 12:28 UNIT: CNIV ROOM: STUDY DESCRIPTION: US Carotid W/Doppler Bilateral Attending Physician: Ebenezer Weiss M.D. Referring Physician: Ebenezer Weiss M.D. Ordering Physician: Ebenezer Weiss M.D. Primary Care Physician: Ebenezer Weiss M.D. MEDICAL IMAGING REPORT This report is preliminary unless electronic signature is present EXAM Bilateral carotid duplex HISTORY Carotid bruit. FINDINGS There is patent flow seen throughout the right common carotid, internal carotid and external carotid arteries. There is some diffuse, homogeneous, irregular appearing plaque seen in the right common carotid artery at the right carotid bifurcation. It appears more focal and irregular, extending to the internal and external carotid arteries. The right common carotid peak velocity is 39 cm/sec. The right internal carotid artery peak systolic/end-diastolic velocities are: proximal 62/21 cm/sec, mid 56/16 cm/sec, distal 69/26 cm/sec. The right external carotid artery peak velocity is 49 cm/sec. vertebral artery 36 cm/sec. The right ICA:CCA ratio is 1.7. There is patent flow seen throughout the left common carotid, internal carotid and external carotid arteries. At the left carotid bifurcations, there is irregular, heterogeneous, and echogenic plaque seen extending to the proximal external carotid artery and proximal internal carotid artery. The left common carotid artery peak velocity is 58 cm/sec. The left internal carotid artery peak systolic/end-diastolic velocities are: proximal 69/17 cm/sec, mid 69/21 cm/sec, distal 66/17 cm/sec. The left external carotid peak velocity is 87 cm/sec. Vertebral artery 63 cm/sec. Left ICA:CCA ratio is 1.1. IMPRESSION 1. The right carotid artery has mild atherosclerosis, which is not hemodynamically significant by duplex criteria (less than 50%). 2. The left carotid artery has mild atherosclerosis, which is not STS. [facility] A Service of [facility] & [facility] RADIOLOGY TEXT RESULTS PATIENT: ROB HOYOS LOCATION: [facility] : 30 UNIT #: [id number] AGE: [address]: Ebenezer Weiss MD SEX: M ORDER DR: hemodynamically significant by duplex criteria (less than 50%). 3. Vertebral flows antegrade bilaterally. Dictated by... Skyler Bills M.D. THIS IS AN ELECTRONICALLY VERIFIED REPORT Skyler Bills M.D. at 10/23/2016 11:55 AM Earnestine TD: 10/21/2016 23:15 JOB #: [id number] MEDICAL IMAGING REPORT Page 1 of 1 COPY
== END | disposition home or self-care (01) ==
LOC: CNIV 12:02
DX: R09.89 Other specified symptoms and signs involving the circulatory and respiratory systems (principal); I65.23 Occlusion and stenosis of bilateral carotid arteries
CPT/HCPCS: 93880